=== PATIENT | male | born 1960 | race Two or more races ===

== ENCOUNTER 2020-11-29 08:32 | Outpatient (REF) | payer OTHER, SELFPAY ==
[2020-11-29 09:09] LABS: MANUAL DIFF FLAG NO
[2020-11-29 09:14] LABS: Basophils Absolute Auto 0.1 X10*3/uL (0.0-0.2); Basophils Percent Auto 0.7 % (0-2); Eosinophils Absolute Auto 0.2 X10*3/uL (0.0-0.4); Eosinophils Percent Auto 2.8 % (0-4); Hematocrit 43.3 % (42-52); Hemoglobin 14.7 g/dl (14.0-18.0); Imm Gran Abs Auto 0.03 X10*3/uL (0.00-0.03); Imm Gran Pct Auto 0.4 % (0.0-0.4); Lymphocytes Absolute Auto 2.7 X10*3/uL (1.2-4.9); Lymphocytes Percent Auto 38.7 % (20-40); Mean Corpuscular HGB Conc 33.9 g/dl (31.0-36.0); Mean Corpuscular Hemoglobin 29.8 pg (27.0-33.0); Mean Corpuscular Volume 87.8 fL (80-98); Mean Platelet Volume 9.3 fL (9.4-12.4); Monocytes Absolute Auto 0.5 X10*3/uL (0.1-1.2); Monocytes Percent Auto 6.8 % (2-11); Neutrophils Absolute Auto 3.5 X10*3/uL (2.0-8.3); Neutrophils Percent Auto 50.6 % (45-73); Platelet Count 263 X10*3/uL (160-400); Red Blood Count 4.93 X10*6/uL (4.60-5.80); Red Cell Distribution Width 13.1 % (11.0-16.0); White Blood Count 6.9 X10*3/uL (4.8-10.8)
[2020-11-29 09:44] LABS: Alanine Aminotransferase 32 U/L (0-40); Albumin Level 4.3 g/dL (3.5-5.0); Alkaline Phosphatase 63 U/L (39-117); Anion Gap 11 (12-20); Aspartate Amino Transferase 18 U/L (5-37); Bilirubin Total 0.7 mg/dL (0.0-1.0); Blood Urea Nitrogen 14 mg/dL (9-16); Calcium 8.9 mg/dL (8.4-10.2); Carbon Dioxide 26 mmol/L (22-29); Chloride 104 mmol/L (96-108); Cholesterol 162 mg/dL; Estimated Glomerular Filt Rate > 60; Glucose Fasting 134 mg/dL (60-99); HDL Cholesterol 41 mg/dL; LDL Cholesterol Calculated 89 mg/dl; Potassium 4.4 mmol/L (3.3-5.1); Sodium 137 mmol/L (135-145); Total Protein 7.3 g/dL (6.5-8.0); Triglycerides 162 mg/dL
== END 2020-11-29 08:33 | disposition home or self-care (01) ==
LOC: HO.LAB 08:32
PROVIDERS: Visit Provider Internal Medicine
DX: Z00.00 Encounter for general adult medical examination without abnormal findings (principal); E11.9 Type 2 diabetes mellitus without complications
CPT/HCPCS: 36415; 80053; 80061; 85025

== ENCOUNTER → 2021-01-15 09:17 | Outpatient (BNVA) | payer OTHER, SELFPAY | PROVIDERS: PCP Internal Medicine; Visit Provider Internal Medicine | DX: R07.2 Precordial pain (principal); R06.02 Shortness of breath; I10 Essential (primary) hypertension; E78.5 Hyperlipidemia, unspecified | CPT/HCPCS: 93005 ==

== ENCOUNTER → 2021-01-21 10:33 | Outpatient (REF) | payer OTHER, SELFPAY ==
--- NOTE | 2021-01-21 10:37 | CA_ITS ---
Acquisition Time: 2021-01-21 10:52:46 Total Exercise Time: 00:09:41 Test Indications: SOB Medications: SEE CHART Protocol: LIN Max HR: 169 BPM 104% of Pred: 162 BPM Max BP: 152/080 mmHG Max Work Load: 11.2 METS Exercise stress ECHO using Lin protocol. Total of 9 min 41 sec, METS 11.20 and TAPHR up to 104 %. Pt tolerated well, denies any anginal sx. EKG without arrhythmias, no ischemic changes seen during exercise or in recovery. EHO images taken at rest and immediately after peak exercise HR achieved. Definity contrast used. Normotensive response to exercise. Test reviewed with Dr. Lombardo. Referred By: Martin Lombardo Overread By: Zulay Benitez NP
== END ==
LOC: HO.CARD 10:33
PROVIDERS: Visit Provider Internal Medicine
DX: R07.2 Precordial pain (principal)
CPT/HCPCS: 93350; Q9957

== ENCOUNTER → 2021-02-26 09:18 | Outpatient (REF) | payer OTHER, SELFPAY ==
--- NOTE | 2021-02-26 09:22 | CA_ITS ---
Transthoracic Echocardiogram Patient (Last, First, Middle): Dave Vail, Gender: Male Date of : 1960 Age: 60 Procedure Date: 02/26/2021 Procedure Type: Transthoracic Echocardiogram Location: OP Height: 162.56 cm Weight: 76.2 kg BSA: 1.82 m2 Heart Rate: bpm BP: 134 / 72 mmHg Machine Design Teacher: CLARISSA Vidales MD: Martin Lombardo MD Auto Body Straightener: Mateo Gonzalez MD Symptoms: R07.2 - Precordial pain Study Quality: Good ECG Rhythm: Sinus Conclusions: - 1. Normal LV systolic function with grade 1 diastolic dysfunction 2. Mildly decreased RV size low RV systolic right 3. Normal cardiac valvular Doppler 4. No pericardial effusion Findings Left Ventricle Normal left ventricular size, thickness, and systolic function. The visually estimated ejection fraction is between 60-65%. Spectral Doppler is indicative of an impaired relaxation filling pattern. E/E prime ratio is <8, consistent with normal filling pressures. Evidence suggests grade I (mild) diastolic dysfunction. Right Ventricle Mildly increased right ventricular cavity size. There is low normal right ventricular systolic function. Atria Both atria are normal in size. There is no evidence of interatrial shunt. Aortic Valve Normal aortic valve structure and function. There is no aortic valve stenosis. There is no aortic valve regurgitation. Mitral Valve There is mild posterior mitral leaflet thickening. There is mild mitral annular calcification. There is trace mitral valve regurgitation. There is no mitral valve stenosis. Pulmonic Valve The pulmonic valve is likely normal. Tricuspid Valve Likely normal tricuspid valve structure and function. Tricuspid regurgitation envelope is inadequate for calculation of right ventricular systolic pressure. Great Vessels All visible segments of the aorta are normal in size. The pulmonary artery was not well visualized. Venous The inferior vena cava is normal in size and collapses greater than 50% with inspiration. Pericardium/Pleural There is no evidence of pericardial effusion. Prior Study Comparison No previous study within last 5 years for comparison Measurements 2D Linear Measurements RVIDd: 2.91 RVIDd Index: 1.60 IVSd: 1.04 0.6-0.9/0.6-1.0 cm LVIDd: 5.23 3.9-5.3/4.2-5.9 cm LVIDd Index: 2.87 2.4-3.2/2.2-3.1 cm/m2 LVIDs: 3.20 2.0-3.6 cm LVPWd: 0.95 0.7-1.1 cm Ao Root: 3.10 2.1-3.5 cm LA Diam: 3.30 2.7-3.8/3.0-4.0 cm LAIDs Index: 1.81 1.5-2.3 cm/m2 LV Mass: 243.29 67-162/88-224 g LV Mass Index: 133.68 43-95/49-115 g/m2 LVOT Diam: 2.20 3.0+(-)1.3 cm 2D Systolic Function EF 4C: 66.30 >55% EF 2C: 47.50 >55% EF BiP: 56.40 >55% Mitral Valve MV Pk E: 0.50 MV PK A: 0.48 MV Decel Time: 235.00 E/A: 1.00 E'Lateral: 10.40 E'Medial: 5.98 E/E' Med: 8.40 E/E' Lat: 4.80 Aortic Valve AoV Pk Andrea: 1.33 AoV Mn Andrea: 0.94 AoV VTI: 0.26 AoV Pk Grad: 7.00 Aov Mn Grad: 4.00 EDNA Cont.VTI: 2.77 LVOT LVOT Pk Andrea: 0.93 LVOT Mn Andrea: 0.62 LVOT VTI: 0.19 LVOT Pk Grad: 3.00 LVOT Mn Grad: 2.00 LVOT Diam: 2.20 LVOT Area: 3.80 Diastolic Function MV Pk E: 0.50 MV Pk A: 0.48 E/A: 1.00 E'Medial: 5.98 E/E' Med: 8.40 E' Laterial: 10.40 E/E' Lat: 4.80 Tricuspid Valve RA Press: 3.00 Great Vessels Aorta Ao Root-2D: 3.10 2.0-3.7 cm Ao Asc: 3.00 2.1-3.4 cm Ao Arch: 2.60 Updated in Other Vendor System with Status of Final Mateo Gonzalez MD electronically signed on 02/28/2021 12:22:45 PM with status of Final
== END ==
LOC: HO.CARD 09:18
PROVIDERS: Visit Provider Internal Medicine
DX: R07.2 Precordial pain (principal)
CPT/HCPCS: 93306

== ENCOUNTER → 2021-03-11 09:09 | Outpatient (BNVA) | payer OTHER, SELFPAY | PROVIDERS: PCP Internal Medicine; Referring Provider Internal Medicine; Visit Provider Internal Medicine ==

== ENCOUNTER → 2021-09-15 08:44 | Outpatient (BNVA) | payer OTHER, SELFPAY | PROVIDERS: PCP Internal Medicine; Referring Provider Internal Medicine; Visit Provider Internal Medicine ==

== ENCOUNTER 2021-12-08 12:45 | Emergency (ER) | payer OTHER, SELFPAY ==
--- NOTE | ~2021-12-08 | XR_ITS ---
EXAMINATION: XR CHEST CLINICAL INFORMATION: Chest pain COMPARISON: None TECHNIQUE: Frontal view of the chest was obtained. FINDINGS: The lungs are well-expanded. There is no focal consolidation, edema or effusion. No pneumothorax. The cardiomediastinal silhouette is within normal limits. No acute osseous abnormality. XR/XR chest 1V IMPRESSION: No acute pulmonary disease.
[2021-12-08 13:47] VITALS: BP 173/99; PULSE 74; RESP 18; TEMP 36.8; O2SAT 97; BMI 28.1
--- NOTE | 2021-12-08 13:49 | ECG_ITS ---
Test Reason : HTN Blood Pressure : / mmHG Vent. Rate : 066 BPM Atrial Rate : 066 BPM P-R Int : 190 ms QRS Dur : 096 ms QT Int : 376 ms P-R-T Axes : 049 005 037 degrees QTc Int : 394 ms Normal sinus rhythm Inferior infarct , age undetermined Abnormal ECG No previous ECGs available Referred By: Generic ED Physician Electronically Signed By:Nic Johnson
[2021-12-08 14:03] LABS: MANUAL DIFF FLAG NO
[2021-12-08 14:08] LABS: Basophils Percent Auto 0.7 % (0-2); Eosinophils Absolute Auto 0.2 X10*3/uL (0.0-0.4); Hematocrit 43.1 % (42.0-52.0); Hemoglobin 14.9 g/dl (14.0-18.0); Imm Gran Abs Auto 0.03 X10*3/uL (0.00-0.03); Imm Gran Pct Auto 0.5 % (0.0-0.4); Lymphocytes Absolute Auto 2.3 X10*3/uL (1.2-4.9); Mean Corpuscular HGB Conc 34.6 g/dl (31.0-36.0); Mean Corpuscular Hemoglobin 29.7 pg (27.0-33.0); Mean Corpuscular Volume 85.9 fL (80.0-98.0); Mean Platelet Volume 9.1 fL (9.4-12.4); Monocytes Absolute Auto 0.3 X10*3/uL (0.1-1.2); Monocytes Percent Auto 5.6 % (2-11); Neutrophils Absolute Auto 3.2 x10*3/uL (2.0-8.3); Neutrophils Percent Auto 53.2 % (45-73); Platelet Count 254 X10*3/uL (160-400); Red Blood Count 5.02 X10*6/uL (4.60-5.80); Red Cell Distribution Width 12.9 % (11.0-16.0); White Blood Count 6.1 X10*3/uL (4.8-10.8)
[2021-12-08 14:21] LABS: Anion Gap 12 (12-20); Blood Urea Nitrogen 12 mg/dL (9-16); Calcium 10.1 mg/dL (8.4-10.2); Carbon Dioxide 26 mmol/L (22-29); Chloride 103 mmol/L (96-108); Estimated Glomerular Filt Rate > 60; Glucose Random 169 mg/dL (60-115); Potassium 4.2 mmol/L (3.3-5.1); Sodium 137 mmol/L (135-145)
[2021-12-08 14:26] LABS: Troponin-I High Sensitivity 4.6 ng/L (<3.5-35.0)
--- NOTE | 2021-12-08 14:26 | ED.CHESTPAIN ---
HPI - Chest Pain General Chief Complaint: Chest Pain Stated Complaint: HIGH BP 160 / 90 CHEST PAIN Time Seen by Provider: 12/08/21 14:26 Source: patient Mode of arrival: ambulatory Limitations: no limitations History of Present Illness HPI narrative: chest pain started at 8pm, the pain radiated into the back. Started last night, intermittent, but at times it is worse. Stress echo normal 4 months ago complaint: chest pain and chest heaviness Onset (ago): hour(s) Timing of current episode: episodic Prior episodes: No Onset: during rest Pain location: substernal Pain radiation: back Severity: moderate Quality: other (pressure) Exacerbating factors: nothing Risk Factors Coronary artery disease risk factors: hyperlipidemia, hypertension and family history of CAD before age 50 Related Data Home Medications Medication Instructions Recorded Confirmed aspirin 81 mg tablet,delayed 81 mg PO DAILY 11/22/20 09/15/21 release (Adult Low Dose Aspirin) multivit,Ca,min-iron 8 mg-folic 1 tab PO DAILY tab 11/22/20 09/15/21 acid 200 mcg-lycopene 600 mcg tablet (Centrum Men) simvastatin 40 mg tablet 40 mg PO DAILY 11/22/20 09/15/21 Previous Rx's Medication Instructions Recorded lisinopril 5 mg tablet 5 mg PO DAILY #90 tab 02/17/21 Allergies Allergy/AdvReac Type Severity Reaction Status Date / Time No Known Allergies Allergy Verified 09/15/21 09:02 Review of Systems Constitutional: Constitutional: Reports no additional constitutional complaints Eyes: Eyes: Reports no additional eye complaints ENT: Denies dizziness Cardiovascular: Cardiovascular: Reports no additional cardiovascular complaints Respiratory: Respiratory: Reports as per HPI Gastrointestinal: Gastrointestinal: Reports no additional gastrointestinal complaints Musculoskeletal: Musculoskeletal: Reports no additional musculoskeletal complaints Integumentary/Breasts: Skin/Breast: Denies rash Neurologic: Reports system reviewed and no additional complaints, except as documented, Denies dizziness and Denies Sensory deficit (Neuro) Psychiatric: Psychiatric: Denies anxiety PMFSH Past Medical History Medical History Essential hypertension Hypertension Other and unspecified hyperlipidemia Surgical History History of extraction of renal calculus Family History Family History Mother No problems noted. Father High blood pressure Social History Social History Alcohol intake: current Alcohol intake frequency: a few times a month Patient Tobacco Use Status: Never used Tobacco Use of substances other than those prescribed or required for medical reasons: No Advance Directives: No Advance Directives Information Provided: No Physical Exam Vital Signs: Vital Signs: Last Vital Signs Temp 98.2 F 12/08/21 13:47 Pulse 70 12/08/21 14:39 Resp 22 H 12/08/21 14:39 BP 177/98 H 12/08/21 14:39 Pulse Ox 97 12/08/21 13:47 BMI result Body Mass Index 28.1 Const: General: healthy appearing Nutritional Appearance: average body habitus Orientation/consciousness: oriented to person and patient oriented x3 Limitations: no limitations HENMT: Head: Yes normal to inspection Ears: external ears normal General nose exam: Normal external nose present Mouth: Normal oral and palatal mucosa present and oropharynx normal Throat: Yes posterior oropharynx normal Eyes: General: appearance normal, both eyes and all related structures Neck: Other: supple Neck: Yes normal visual inspection Chest: Chest palpation & inspection: normal inspection of the chest Resp: Auscultation: clear to auscultation bilaterally Cardio: Jugular venous distension: no JVD Rate: regular rate Rhythm: regular rhythm Heart sounds: S1 normal heart sound present and S2 normal heart sound present GI: Inspection: Yes normal to inspection Palpation (GI): Soft to palpation, nontender and No hepatosplenomegaly present Auscultation: normal bowel sounds : General: Yes no CVA tenderness Back/Spine/Pelvis: Back: no CVA tenderness Skin: General skin exam: no rashes or lesions noted Neuro: General: oriented to person and patient oriented x3 Cranial nerves: Yes CN's II-XII intact bilaterally Motor exam (neuro): 5/5 motor strength present throughout Sensory Exam: No Sensory deficit (Neuro) Extrem: General: Yes normal to inspection Psych: Appearance: grossly normal Course Reevaluation(s) Reevaluation #1: patient with continued pain since last night with normal EKG and flat troponins. In the setting of negative stress echo a few months ago and discussed with Dr. Alex will dc home Time: 18:16 MDM - Chest Pain Lab Data Result diagrams: 12/08/21 13:59 12/08/21 13:59 Labs: Lab Results 12/08/21 12/08/21 12/08/21 Range/Units 13:59 13:59 13:59 WBC 6.1 (4.8-10.8) X10*3/uL RBC 5.02 (4.60-5.80) X10*6/uL Hgb 14.9 (14.0-18.0) g/dl Hct 43.1 (42.0-52.0) % MCV 85.9 (80.0-98.0) fL MCH 29.7 (27.0-33.0) pg MCHC 34.6 (31.0-36.0) g/dl RDW 12.9 (11.0-16.0) % Plt Count 254 (160-400) X10*3/uL MPV 9.1 L (9.4-12.4) fL Immature Gran % (Auto) 0.5 H (0.0-0.4) % Neut % (Auto) 53.2 (45-73) % Lymph % (Auto) 37.0 (20-40) % [place] % (Auto) 5.6 (2-11) % Eos % (Auto) 3.0 (0-4) % Baso % (Auto) 0.7 (0-2) % Lymph # (Auto) 2.3 (1.2-4.9) X10*3/uL [place] # (Auto) 0.3 (0.1-1.2) X10*3/uL Eos # (Auto) 0.2 (0.0-0.4) X10*3/uL Baso # (Auto) 0.0 (0.0-0.2) X10*3/uL Abs Immat Gran (auto) 0.03 (0.00-0.03) X10*3/uL Absolute Neuts (auto) 3.2 (2.0-8.3) x10*3/uL Absolute Nucleated RBC 0.000 (0.0-0.012) X10*3/uL Nucleated RBC % (auto) 0.0 (0.0-0.2) /100WBC Sodium 137 (135-145) mmol/L Potassium 4.2 (3.3-5.1) mmol/L Chloride 103 (96-108) mmol/L Carbon Dioxide 26 (22-29) mmol/L Anion Gap 12 (12-20) BUN 12 (9-16) mg/dL Creatinine 1.07 (0.5-1.4) mg/dL Estim Creat Clear Calc 71.0 Estimated GFR > 60 Random Glucose 169 H (60-115) mg/dL Calcium 10.1 D (8.4-10.2) mg/dL Troponin I High Sens 4.6 (<3.5-35.0) ng/L COVID-19 (FILIBERTO) (Negative) COVID-19 Clin Com 12/08/21 12/08/21 Range/Units 13:59 16:27 WBC (4.8-10.8) X10*3/uL RBC (4.60-5.80) X10*6/uL Hgb (14.0-18.0) g/dl Hct (42.0-52.0) % MCV (80.0-98.0) fL MCH (27.0-33.0) pg MCHC (31.0-36.0) g/dl RDW (11.0-16.0) % Plt Count (160-400) X10*3/uL MPV (9.4-12.4) fL Immature Gran % (Auto) (0.0-0.4) % Neut % (Auto) (45-73) % Lymph % (Auto) (20-40) % [place] % (Auto) (2-11) % Eos % (Auto) (0-4) % Baso % (Auto) (0-2) % Lymph # (Auto) (1.2-4.9) X10*3/uL [place] # (Auto) (0.1-1.2) X10*3/uL Eos # (Auto) (0.0-0.4) X10*3/uL Baso # (Auto) (0.0-0.2) X10*3/uL Abs Immat Gran (auto) (0.00-0.03) X10*3/uL Absolute Neuts (auto) (2.0-8.3) x10*3/uL Absolute Nucleated RBC (0.0-0.012) X10*3/uL Nucleated RBC % (auto) (0.0-0.2) /100WBC Sodium (135-145) mmol/L Potassium (3.3-5.1) mmol/L Chloride (96-108) mmol/L Carbon Dioxide (22-29) mmol/L Anion Gap (12-20) BUN (9-16) mg/dL Creatinine (0.5-1.4) mg/dL Estim Creat Clear Calc Estimated GFR Random Glucose (60-115) mg/dL Calcium (8.4-10.2) mg/dL Troponin I High Sens 4.5 (<3.5-35.0) ng/L COVID-19 (FILIBERTO) Negative (Negative) COVID-19 Clin Com See Note Discharge Plan Discharge Clinical Impression: Chest pain Patient Disposition: Home, Self-Care Instructions: Chest Pain (ED) Prescriptions: No Action lisinopril 5 mg tablet 5 mg PO DAILY Qty: 90 8RF simvastatin 40 mg tablet 40 mg PO DAILY 0RF aspirin [Adult Low Dose Aspirin] 81 mg tablet,delayed release (DR/EC) 81 mg PO DAILY 0RF Centrum Men 8 mg iron- 200 mcg-600 mcg tablet 1 tab PO DAILY 0RF Referrals: Martin Lombardo MD [Physician] - 5 days
[2021-12-08 14:35] LABS: COVID-19 Test Negative (Negative)
[2021-12-08 14:39] VITALS: BP 177/98; PULSE 70; RESP 22
[2021-12-08] MEDS: lisinopriL 10 MG TABLET PO (14:46)
[2021-12-08] MEDS: Ketorolac Tromethamine 60 MG/2 ML VIAL IM (14:46)
[2021-12-08 17:09] LABS: Troponin-I High Sensitivity 4.5 ng/L (<3.5-35.0)
== END 2021-12-08 18:33 | disposition home or self-care (01) ==
PROVIDERS: Emergency Provider Emergency Medicine; PCP Internal Medicine
DX: R07.9 Chest pain, unspecified (principal); Z20.822 Contact with and (suspected) exposure to COVID-19; E78.5 Hyperlipidemia, unspecified; I10 Essential (primary) hypertension; Z79.82 Long term (current) use of aspirin; Z79.02 Long term (current) use of antithrombotics/antiplatelets
CPT/HCPCS: 36415; 71045; 80048; 84484; 85025; 87635; 93005; 96372; 99284; 99285; J1885

== ENCOUNTER 2022-04-07 07:35 | Outpatient (REF) | payer OTHER, SELFPAY ==
[2022-04-07 07:50] LABS: MANUAL DIFF FLAG NO
[2022-04-07 08:18] LABS: Basophils Absolute Auto 0.1 X10*3/uL (0.0-0.2); Basophils Percent Auto 1.1 % (0-2); Eosinophils Absolute Auto 0.2 X10*3/uL (0.0-0.4); Eosinophils Percent Auto 3.3 % (0-4); Hematocrit 40.9 % (42.0-52.0); Imm Gran Abs Auto 0.03 X10*3/uL (0.00-0.03); Imm Gran Pct Auto 0.5 % (0.0-0.4); Lymphocytes Absolute Auto 2.6 X10*3/uL (1.2-4.9); Lymphocytes Percent Auto 41.7 % (20-40); Mean Corpuscular HGB Conc 34.2 g/dl (31.0-36.0); Mean Corpuscular Hemoglobin 29.6 pg (27.0-33.0); Mean Corpuscular Volume 86.5 fL (80.0-98.0); Mean Platelet Volume 9.2 fL (9.4-12.4); Monocytes Absolute Auto 0.5 X10*3/uL (0.1-1.2); Monocytes Percent Auto 7.5 % (2-11); Neutrophils Absolute Auto 2.9 x10*3/uL (2.0-8.3); Neutrophils Percent Auto 45.9 % (45-73); Platelet Count 259 X10*3/uL (160-400); Red Blood Count 4.73 X10*6/uL (4.60-5.80); Red Cell Distribution Width 13.2 % (11.0-16.0); White Blood Count 6.3 X10*3/uL (4.8-10.8)
[2022-04-07 08:36] LABS: Estimated Average Glucose 137 mg/dL; Hemoglobin A1c % 6.4 %
[2022-04-07 08:59] LABS: Alanine Aminotransferase 28 U/L (0-40); Alkaline Phosphatase 68 U/L (39-117); Anion Gap 12 (12-20); Aspartate Amino Transferase 17 U/L (5-37); Bilirubin Total 0.4 mg/dL (0.0-1.0); Blood Urea Nitrogen 18 mg/dL (9-16); Calcium 8.7 mg/dL (8.4-10.2); Carbon Dioxide 24 mmol/L (22-29); Chloride 106 mmol/L (96-108); Cholesterol 189 mg/dL; Estimated Glomerular Filt Rate > 60; Glucose Fasting 142 mg/dL (60-99); HDL Cholesterol 35 mg/dL; LDL Cholesterol Calculated 84 mg/dl; Potassium 4.2 mmol/L (3.3-5.1); Sodium 138 mmol/L (135-145); Total Protein 7.1 g/dL (6.5-8.0); Triglycerides 353 mg/dL
== END 2022-04-07 07:36 | disposition home or self-care (01) ==
LOC: HO.LAB 07:35
PROVIDERS: PCP Internal Medicine; Visit Provider Internal Medicine
DX: Z00.00 Encounter for general adult medical examination without abnormal findings (principal); E11.9 Type 2 diabetes mellitus without complications; Z13.0 Encounter for screening for diseases of the blood and blood-forming organs and certain disorders involving the immune mechanism; Z13.220 Encounter for screening for lipoid disorders
CPT/HCPCS: 36415; 80053; 80061; 83036; 85025

== ENCOUNTER → 2022-07-21 10:15 | Outpatient (REF) | payer OTHER, SELFPAY ==
--- NOTE | 2022-07-21 10:18 | CA_ITS ---
Transthoracic Echocardiogram Patient (Last, First, Middle): Dave Vail, Gender: Male Date of : 1960 Age: 61 Procedure Date: 07/21/2022 Procedure Type: Transthoracic Echocardiogram Location: OP Height: 167.64 cm Weight: 76.66 kg BSA: 1.86 m2 Heart Rate: 60 bpm BP: 130 / 80 mmHg Fiberglass Machine Operator: ARABELLA Referring MD: Martin Lombardo MD Symptoms: I51.7 - Cardiomegaly Study Quality: Adequate ECG Rhythm: Sinus Conclusions: - The left ventricular systolic function is normal. The calculated ejection fraction is 57% by biplane method. - No obvious valvular pathology seen on this study. Findings Left Ventricle Normal left ventricular cavity size. The left ventricular systolic function is normal. The calculated ejection fraction is 57% by biplane method. There is no evidence of regional wall motion abnormalities. Diastolic function is normal for age. There is mild septal asymmetric hypertrophy. Right Ventricle Normal right ventricular cavity size and systolic function. Atria Both atria are normal in size. Aortic Valve There is a normal trileaflet aortic valve. There is no aortic valve stenosis. There is no aortic valve regurgitation. Mitral Valve The mitral valve appears normal. There is trace mitral valve regurgitation. There is no mitral valve stenosis. Pulmonic Valve There is trace pulmonic valve regurgitation. Tricuspid Valve Normal tricuspid valve structure. There is trace tricuspid valve regurgitation. There is no evidence of pulmonary hypertension. Great Vessels The asc aorta is normal in size. Venous The inferior vena cava is normal in size and collapses greater than 50% with inspiration. Pericardium/Pleural There is no evidence of pericardial effusion. Prior Study Comparison Changes noted compared to prior study dated: 02/26/2021. RV function appears normal. Recommendations, Care & Conclusions No obvious valvular pathology seen on this study. Measurements 2D Linear Measurements IVSd: 1.15 0.6-0.9/0.6-1.0 cm LVIDd: 5.04 3.9-5.3/4.2-5.9 cm LVIDd Index: 2.71 2.4-3.2/2.2-3.1 cm/m2 LVIDs: 3.07 2.0-3.6 cm LVPWd: 0.83 0.7-1.1 cm LA Diam: 3.90 2.7-3.8/3.0-4.0 cm LAIDs Index: 2.10 1.5-2.3 cm/m2 LV Mass: 227.26 67-162/88-224 g LV Mass Index: 122.18 43-95/49-115 g/m2 LVOT Diam: 1.90 3.0+(-)1.3 cm 2D Systolic Function EF 4C: 54.00 >55% EF 2C: 57.70 >55% EF BiP: 56.70 >55% Mitral Valve MV Pk E: 0.77 MV PK A: 0.67 MV Decel Time: 230.00 E/A: 1.10 E'Lateral: 12.40 E'Medial: 7.72 E/E' Med: 9.90 E/E' Lat: 6.20 PHT: 67.00 MVA PHT: 3.28 Decel [place]: 3.34 Aortic Valve AoV Pk Andrea: 1.27 AoV Mn Andrea: 0.99 AoV VTI: 0.30 AoV Pk Grad: 6.00 Aov Mn Grad: 4.00 EDNA Cont.VTI: 1.74 LVOT LVOT Pk Andrea: 0.81 LVOT Mn Andrea: 0.58 LVOT VTI: 0.18 LVOT Pk Grad: 3.00 LVOT Mn Grad: 2.00 LVOT Diam: 1.90 LVOT Area: 2.84 Diastolic Function MV Pk E: 0.77 MV Pk A: 0.67 E/A: 1.10 E'Medial: 7.72 E/E' Med: 9.90 E' Laterial: 12.40 E/E' Lat: 6.20 Right Ventricle TAPSE (mm): 20.70 TVS' Andrea: 9.46 Tricuspid Valve TR Pk Andrea: 1.65 TR Pk Grad: 11.00 RA Press: 3.00 RVSP: 14.00 Great Vessels Aorta Sinus of Valsalva: 3.50 2.0-3.5 cm Ao Asc: 3.20 2.1-3.4 cm Pulmonary Valve PV Pk Andrea: 1.26 Peak PV Grad: 6.00 Updated in Other Vendor System with Status of Final Martin Lombardo MD electronically signed on 07/22/2022 10:07:32 AM with status of Final
== END ==
LOC: HO.CARD 10:15
PROVIDERS: Visit Provider Internal Medicine
DX: I51.7 Cardiomegaly (principal)
CPT/HCPCS: 93306

== ENCOUNTER → 2022-09-29 10:21 | Outpatient (BNVA) | payer OTHER, SELFPAY | PROVIDERS: PCP Internal Medicine; Referring Provider Internal Medicine; Visit Provider Internal Medicine | DX: R07.2 Precordial pain (principal); I10 Essential (primary) hypertension; E78.5 Hyperlipidemia, unspecified | CPT/HCPCS: 93005 ==

== ENCOUNTER 2022-12-07 07:59 | Outpatient (REF) | payer OTHER, SELFPAY ==
[2022-12-07 09:14] LABS: Anion Gap 14 (12-20); Blood Urea Nitrogen 13 mg/dL (9-16); Calcium 9.1 mg/dL (8.4-10.2); Carbon Dioxide 26 mmol/L (22-29); Chloride 107 mmol/L (96-108); Estimated Glomerular Filt Rate > 60; Glucose Random 143 mg/dL (60-115); Potassium 4.5 mmol/L (3.3-5.1); Sodium 142 mmol/L (135-145)
== END 2022-12-07 08:00 | disposition home or self-care (01) ==
LOC: HO.LAB 07:59
PROVIDERS: PCP Internal Medicine; Visit Provider Internal Medicine
DX: R07.2 Precordial pain (principal)
CPT/HCPCS: 36415; 80048

== ENCOUNTER → 2023-01-11 10:19 | Outpatient (BNVA) | payer OTHER, SELFPAY | PROVIDERS: PCP Internal Medicine; Referring Provider Internal Medicine; Visit Provider Internal Medicine | DX: Z13.89 Encounter for screening for other disorder (principal) ==

== ENCOUNTER 2023-02-04 08:37 | Emergency (ER) | payer OTHER, SELFPAY ==
--- NOTE | ~2023-02-04 | XR_ITS ---
EXAMINATION: XR CHEST CLINICAL INFORMATION: Chest pain COMPARISON: December 08, 2021 TECHNIQUE: AP portable view of the chest was obtained. FINDINGS: No significant abnormality is noted involving the heart, lungs, mediastinum, bony thorax or soft tissues. XR/XR chest 1V IMPRESSION: No acute disease.
--- NOTE | 2023-02-04 07:00 | CA_ITS ---
Transthoracic Echocardiogram Amended Patient (Last, First, Middle): Dave Vail, Gender: Male Date of : 1960 Age: 62 Procedure Date: 02/04/2023 Procedure Type: Transthoracic Echocardiogram Location: ER Height: 162.56 cm Weight: 73.03 kg BSA: 1.78 m2 Heart Rate: 55 bpm BP: 135 / 76 mmHg Technical Service Rep: SB Referring MD: Nic Johnson MD Symptoms: RWMA Study Quality: Adequate w contrast ECG Rhythm: Bradycardia Conclusions: - Normal left ventricular size, thickness, and systolic function. The visually estimated ejection fraction is between 55-60%. - The apical inferior segment is akinetic. Findings Procedure Information Contrast agent, definity, is being given per protocol without apparent complications. Left Ventricle Normal left ventricular size, thickness, and systolic function. The visually estimated ejection fraction is between 55-60%. There is evidence of regional wall motion abnormalities. Wall Motion Rest Echo Findings The apical inferior segment is akinetic. Right Ventricle Normal right ventricular cavity size and systolic function. Prior Study Comparison Changes noted compared to prior study dated: 07/21/2022. Apical inferior wall is akinetic. Measurements 2D Linear Measurements IVSd: 0.94 0.6-0.9/0.6-1.0 cm LVIDd: 5.32 3.9-5.3/4.2-5.9 cm LVIDd Index: 2.99 2.4-3.2/2.2-3.1 cm/m2 LVIDs: 3.56 2.0-3.6 cm LVPWd: 0.77 0.7-1.1 cm LV Mass: 204.58 67-162/88-224 g LV Mass Index: 114.93 43-95/49-115 g/m2 LVOT Diam: 2.10 3.0+(-)1.3 cm 2D Systolic Function EF 4C: 57.50 >55% EF 2C: 64.10 >55% EF BiP: 60.00 >55% LVOT LVOT Pk Andrea: 0.88 LVOT Mn Andrea: 0.63 LVOT VTI: 0.21 LVOT Pk Grad: 3.00 LVOT Mn Grad: 2.00 LVOT Diam: 2.10 LVOT Area: 3.46 Updated in Other Vendor System with Status of Final Nic Johnson MD electronically signed on 02/04/2023 1:57:27 PM with status of Final
--- NOTE | 2023-02-04 08:38 | ECG_ITS ---
Test Reason : cp Blood Pressure : / mmHG Vent. Rate : 057 BPM Atrial Rate : 057 BPM P-R Int : 206 ms QRS Dur : 090 ms QT Int : 388 ms P-R-T Axes : 019 008 003 degrees QTc Int : 377 ms Sinus bradycardia Inferior infarct (cited on or before 08-DEC-2021) Abnormal ECG When compared with ECG of 08-DEC-2021 13:46, T wave inversion now evident in Inferior leads Referred By: Generic ED Physician Electronically Signed By:Nic Johnson
--- NOTE | 2023-02-04 08:52 | ED_ITS ---
HPI - Chest Pain General Chief Complaint: Chest Pain Stated Complaint: chest pain Time Seen by Provider: 02/04/23 08:49 Source: patient Mode of arrival: ambulatory Limitations: no limitations History of Present Illness HPI narrative: 62 yo male with history of multivessel CAD seen on recent coronary CTA, HTN, HLD, kidney stones, nonsmoker who presents to the ER for evaluation of chest pain that started slightly last night but got acutely worse at 5am when he woke up. He states he woke up with chest heaviness in the middle of his chest. He initially had some pain and pins/needles sensation in the left arm but states it could have been from the way he was sleeping with his LUE up behind his head. He got up and took 1 SL nitro for 8/10 pain. He states the pain improved to about a 6/10. He has no associated SOB or nausea. He also had similar chest heaviness type pain last night as well as a couple of days ago while at rest, similar to his previous CP episodes. He power walks on a treadmill, last 2 days ago and had no pain. MD complaint: chest pain Pertinent past history: coronary artery disease Onset (ago): hour(s) (4-5) Timing of current episode: constant Prior episodes: Yes Onset: during rest Pain location: substernal Pain radiation: left arm Severity: severe Pain scale (0-10): 8 Quality: heaviness Relieving factors: nitroglycerin Exacerbating factors: nothing Treatment prior to arrival: nitroglycerin Risk Factors Coronary artery disease risk factors: hyperlipidemia and hypertension Thoracic aortic dissection risk factors: none Related Data Home Medications Medication Instructions Recorded Confirmed aspirin 81 mg tablet,delayed 81 mg PO DAILY 11/22/20 01/11/23 release (Adult Low Dose Aspirin) multivit,Ca,min-iron 8 mg-folic 1 tab PO DAILY 11/22/20 01/11/23 acid 200 mcg-lycopene 600 mcg tablet (Centrum Men) lisinopril 10 mg tablet 10 mg PO DAILY 02/04/23 Previous Rx's Medication Instructions Recorded metoprolol tartrate 25 mg tablet 25 mg PO BID 30 days #60 tabs 12/23/22 rosuvastatin 40 mg tablet 40 mg PO DAILY #30 tabs 12/23/22 nitroglycerin 0.4 mg sublingual 0.4 mg sublingual Q5M PRN chest 01/11/23 tablet pain #30 tabs Allergies Allergy/AdvReac Type Severity Reaction Status Date / Time No Known Allergies Allergy Verified 01/11/23 10:24 Review of Systems Review of Systems: Yes all other systems are reviewed and are negative [facility] Past Medical History Medical History (Updated 02/04/23 @ 12:58 by Nic Johnson MD) Atherosclerotic cardiovascular disease Essential hypertension Hypertension Other and unspecified hyperlipidemia Surgical History History of extraction of renal calculus Family History Family History Mother No problems noted. Father High blood pressure Social History Social History Housing: Apartment Alcohol intake: current Alcohol intake frequency: holidays/special occasions only Patient Tobacco Use Status: Never used Tobacco Smoked in Last 30 Days: No e-Cigarette/Vaping Use: Never Used Second Hand Smoke Exposure: No Use of substances other than those prescribed or required for medical reasons: No Advance Directives: No service: No Current occupational status: employed Cognitive needs: No Hearing needs: No Vision needs: No Physical Exam Vital Signs: Vital Signs: Last Vital Signs Temp 98.1 F 02/04/23 08:54 Pulse 61 02/04/23 12:46 Resp 16 02/04/23 11:11 BP 135/76 02/04/23 11:11 Pulse Ox 95 02/04/23 11:11 O2 Del Method Room Air 02/04/23 11:11 BMI result Body Mass Index 27.8 Appearance: Alert. Oriented X3. No acute distress. Head: normocephalic, atraumatic. Eyes: Pupils equal, round and reactive to light. ENT: Pharynx normal. No tonsillar swelling or exudate. Neck: Normal inspection. Neck supple. CVS: Normal heart rate and rhythm. Pulses normal. Respiratory: No respiratory distress. Breath sounds normal. Abdomen: Soft and nontender. +BS x4 Skin: Skin warm and dry. Normal skin color. Normal skin turgor. No rashes. Extremities: No lower extremity edema. No joint swelling. Neuro/psych: Oriented X 3. No motor deficit. No sensory deficit. CN II-XII intact. Normal speech and cognition. Course Reevaluation(s) Reevaluation #1: 1st troponin is negative. he is feeling better after nitroglycerin cardiology to come evaluate. 2nd troponin pending Reevaluation #2: 2nd troponin negative. cardiology recommending transfer to [facility]. IV heparin infusion started along with nitro paste Consultations Consultation #1: Cardiology Dr. Johnson Medications Administered Discontinued Medications Generic Name Dose Route Start Last Admin Trade Name Freq PRN Reason Stop Dose Admin Nitroglycerin 0.4 mg 02/04/23 08:59 02/04/23 09:05 Nitroglycerin 0.4 Mg Tab.Subl SUBLINGUAL 02/04/23 09:00 0.4 mg ONCE ONE Administration Nitroglycerin 1 inch 02/04/23 12:33 02/04/23 12:46 Nitroglycerin 2 % Oint 1 Gm Packet TRANSDERMA 02/04/23 12:34 1 inch ONCE ONE Administration Medical Decision Making Medical Decision Making MDM Narrative: 62 yo male with history of multivessel CAD on medical management, HTN, HLD presenting with substernal chest pain since 5am. Few other episodes in the last few days at rest, none with exertion. 8/10 at maximum with improvement w/ SL nitro. repeated here with additional improvement. remains hemodynamically stable 1st troponin negative. cardiology consulted given his history - recommending transfer to [facility] for cardiac catheterization. will go directly inpatient - IV heparin to be started along with nitropaste Per Cardiology Note dated earlier this month: In the echocardiogram, LVEF 57%.? Otherwise unremarkable.? No wall motion abnormalities. In the exercise stress test, he was able to exercise for 9 minutes 41 seconds and reached 11.2 Mets.? No anginal-type symptoms or EKG evidence of ischemia.? Echocardiographic component was also unremarkable. Based on coronary CTA, he has got diffuse coronary disease.? Most prominent in the right coronary artery, where there is moderate to severe plaque burden.? More so towards the distal aspect, including PDA and posterolateral branch.? Lad had nonobstructive CAD.? LAD plaque had morphology suggestive of high risk plaque.? Left main is patent.? Circumflex is small.? As expected, FFR is positive in the distal RCA, posterior lateral ventricular branch. Differential Diagnosis Differential Diagnoses: The differential diagnosis associated with the presentation includes unstable angina, ACS, PE, chest wall pain, myocarditis, pericarditis Admission/Observation Consideration of admission/observation: Escalation of care including admission/observation considered Consult Healthcare Provider Management of the patient was discussed with: Specimen Preparation Assistant Dr. Johnson recommending IV Heparin, nitropaste and transfer to [facility] Lab Data MDM Lab Attestation statement: I reviewed the patient's lab results. 02/04/23 09:09 02/04/23 09:09 Labs: Lab Results 02/04/23 02/04/23 02/04/23 Range/Units 09:09 09:09 09:09 WBC 6.2 (4.8-10.8) X10*3/uL RBC 4.82 (4.60-5.80) X10*6/uL Hgb 14.2 (14.0-18.0) g/dl Hct 41.9 L (42.0-52.0) % MCV 86.9 (80.0-98.0) fL MCH 29.5 (27.0-33.0) pg MCHC 33.9 (31.0-36.0) g/dl RDW 13.3 (11.0-16.0) % Plt Count 240 (160-400) X10*3/uL MPV 9.3 L (9.4-12.4) fL Immature Gran % (Auto) 0.2 (0.0-0.4) % Neut % (Auto) 59.0 (45-73) % Lymph % (Auto) 31.5 (20-40) % [place] % (Auto) 5.3 (2-11) % Eos % (Auto) 2.9 (0-4) % Baso % (Auto) 1.1 (0-2) % Lymph # (Auto) 2.0 (1.2-4.9) X10*3/uL [place] # (Auto) 0.3 (0.1-1.2) X10*3/uL Eos # (Auto) 0.2 (0.0-0.4) X10*3/uL Baso # (Auto) 0.1 (0.0-0.2) X10*3/uL Abs Immat Gran (auto) 0.01 (0.00-0.03) X10*3/uL Absolute Neuts (auto) 3.7 (2.0-8.3) x10*3/uL Absolute Nucleated RBC 0.000 (0.0-0.012) X10*3/uL Nucleated RBC % (auto) 0.0 (0.0-0.2) /100WBC PT (10.0-13.1) SEC INR (0.9-1.1) APTT (26.0-36.4) SEC aPTT Heparin Protocol (53-77.9) SEC Sodium 139 (135-145) mmol/L Potassium 4.1 (3.3-5.1) mmol/L Chloride 110 H (96-108) mmol/L Carbon Dioxide 22 (22-29) mmol/L Anion Gap 11 L (12-20) BUN 15 (9-16) mg/dL Creatinine 0.86 (0.5-1.4) mg/dL Estim Creat Clear Calc 84.3 Estimated GFR > 60 Random Glucose 170 H (60-115) mg/dL Calcium 9.0 (8.4-10.2) mg/dL Magnesium 2.0 (1.6-2.6) mg/dL Total Bilirubin 0.4 (0.0-1.0) mg/dL Direct Bilirubin 0.1 (0.0-0.5) mg/dL AST 19 (5-37) U/L ALT 33 (0-40) U/L Alkaline Phosphatase 60 (39-117) U/L Troponin I High Sens 3.5 (<3.5-35.0) ng/L B-Natriuretic Peptide (<100) pg/mL Total Protein 6.7 (6.5-8.0) g/dL Albumin 4.1 (3.5-5.0) g/dL COVID-19 (FILIBERTO) (Negative) COVID-19 Clin Com 02/04/23 02/04/23 02/04/23 Range/Units 09:09 09:09 09:09 WBC (4.8-10.8) X10*3/uL RBC (4.60-5.80) X10*6/uL Hgb (14.0-18.0) g/dl Hct (42.0-52.0) % MCV (80.0-98.0) fL MCH (27.0-33.0) pg MCHC (31.0-36.0) g/dl RDW (11.0-16.0) % Plt Count (160-400) X10*3/uL MPV (9.4-12.4) fL Immature Gran % (Auto) (0.0-0.4) % Neut % (Auto) (45-73) % Lymph % (Auto) (20-40) % [place] % (Auto) (2-11) % Eos % (Auto) (0-4) % Baso % (Auto) (0-2) % Lymph # (Auto) (1.2-4.9) X10*3/uL [place] # (Auto) (0.1-1.2) X10*3/uL Eos # (Auto) (0.0-0.4) X10*3/uL Baso # (Auto) (0.0-0.2) X10*3/uL Abs Immat Gran (auto) (0.00-0.03) X10*3/uL Absolute Neuts (auto) (2.0-8.3) x10*3/uL Absolute Nucleated RBC (0.0-0.012) X10*3/uL Nucleated RBC % (auto) (0.0-0.2) /100WBC PT 11.4 (10.0-13.1) SEC INR 1.0 (0.9-1.1) APTT 34.2 Cancelled (26.0-36.4) SEC aPTT Heparin Protocol (53-77.9) SEC Sodium (135-145) mmol/L Potassium (3.3-5.1) mmol/L Chloride (96-108) mmol/L Carbon Dioxide (22-29) mmol/L Anion Gap (12-20) BUN (9-16) mg/dL Creatinine (0.5-1.4) mg/dL Estim Creat Clear Calc Estimated GFR Random Glucose (60-115) mg/dL Calcium (8.4-10.2) mg/dL Magnesium (1.6-2.6) mg/dL Total Bilirubin (0.0-1.0) mg/dL Direct Bilirubin (0.0-0.5) mg/dL AST (5-37) U/L ALT (0-40) U/L Alkaline Phosphatase (39-117) U/L Troponin I High Sens (<3.5-35.0) ng/L B-Natriuretic Peptide 13 (<100) pg/mL Total Protein (6.5-8.0) g/dL Albumin (3.5-5.0) g/dL COVID-19 (FILIBERTO) (Negative) COVID-19 Clin Com 02/04/23 02/04/23 02/04/23 Range/Units 12:10 12:42 13:06 WBC 8.2 (4.8-10.8) X10*3/uL RBC 5.34 (4.60-5.80) X10*6/uL Hgb 16.0 (14.0-18.0) g/dl Hct 47.4 (42.0-52.0) % MCV 88.8 (80.0-98.0) fL MCH 30.0 (27.0-33.0) pg MCHC 33.8 (31.0-36.0) g/dl RDW 13.5 (11.0-16.0) % Plt Count 239 (160-400) X10*3/uL MPV 9.3 L (9.4-12.4) fL Immature Gran % (Auto) (0.0-0.4) % Neut % (Auto) (45-73) % Lymph % (Auto) (20-40) % [place] % (Auto) (2-11) % Eos % (Auto) (0-4) % Baso % (Auto) (0-2) % Lymph # (Auto) (1.2-4.9) X10*3/uL [place] # (Auto) (0.1-1.2) X10*3/uL Eos # (Auto) (0.0-0.4) X10*3/uL Baso # (Auto) (0.0-0.2) X10*3/uL Abs Immat Gran (auto) (0.00-0.03) X10*3/uL Absolute Neuts (auto) (2.0-8.3) x10*3/uL Absolute Nucleated RBC 0.000 (0.0-0.012) X10*3/uL Nucleated RBC % (auto) 0.0 (0.0-0.2) /100WBC PT (10.0-13.1) SEC INR (0.9-1.1) APTT (26.0-36.4) SEC aPTT Heparin Protocol (53-77.9) SEC Sodium (135-145) mmol/L Potassium (3.3-5.1) mmol/L Chloride (96-108) mmol/L Carbon Dioxide (22-29) mmol/L Anion Gap (12-20) BUN (9-16) mg/dL Creatinine (0.5-1.4) mg/dL Estim Creat Clear Calc Estimated GFR Random Glucose (60-115) mg/dL Calcium (8.4-10.2) mg/dL Magnesium (1.6-2.6) mg/dL Total Bilirubin (0.0-1.0) mg/dL Direct Bilirubin (0.0-0.5) mg/dL AST (5-37) U/L ALT (0-40) U/L Alkaline Phosphatase (39-117) U/L Troponin I High Sens 4.1 (<3.5-35.0) ng/L B-Natriuretic Peptide (<100) pg/mL Total Protein (6.5-8.0) g/dL Albumin (3.5-5.0) g/dL COVID-19 (FILIBERTO) Negative (Negative) COVID-19 Clin Com See Note 02/04/23 Range/Units 13:06 WBC (4.8-10.8) X10*3/uL RBC (4.60-5.80) X10*6/uL Hgb (14.0-18.0) g/dl Hct (42.0-52.0) % MCV (80.0-98.0) fL MCH (27.0-33.0) pg MCHC (31.0-36.0) g/dl RDW (11.0-16.0) % Plt Count (160-400) X10*3/uL MPV (9.4-12.4) fL Immature Gran % (Auto) (0.0-0.4) % Neut % (Auto) (45-73) % Lymph % (Auto) (20-40) % [place] % (Auto) (2-11) % Eos % (Auto) (0-4) % Baso % (Auto) (0-2) % Lymph # (Auto) (1.2-4.9) X10*3/uL [place] # (Auto) (0.1-1.2) X10*3/uL Eos # (Auto) (0.0-0.4) X10*3/uL Baso # (Auto) (0.0-0.2) X10*3/uL Abs Immat Gran (auto) (0.00-0.03) X10*3/uL Absolute Neuts (auto) (2.0-8.3) x10*3/uL Absolute Nucleated RBC (0.0-0.012) X10*3/uL Nucleated RBC % (auto) (0.0-0.2) /100WBC PT 11.1 (10.0-13.1) SEC INR 1.0 (0.9-1.1) APTT (26.0-36.4) SEC aPTT Heparin Protocol 33.7 L (53-77.9) SEC Sodium (135-145) mmol/L Potassium (3.3-5.1) mmol/L Chloride (96-108) mmol/L Carbon Dioxide (22-29) mmol/L Anion Gap (12-20) BUN (9-16) mg/dL Creatinine (0.5-1.4) mg/dL Estim Creat Clear Calc Estimated GFR Random Glucose (60-115) mg/dL Calcium (8.4-10.2) mg/dL Magnesium (1.6-2.6) mg/dL Total Bilirubin (0.0-1.0) mg/dL Direct Bilirubin (0.0-0.5) mg/dL AST (5-37) U/L ALT (0-40) U/L Alkaline Phosphatase (39-117) U/L Troponin I High Sens (<3.5-35.0) ng/L B-Natriuretic Peptide (<100) pg/mL Total Protein (6.5-8.0) g/dL Albumin (3.5-5.0) g/dL COVID-19 (FILIBERTO) (Negative) COVID-19 Clin Com Independent Interpretation I performed an independent interpretation of an: EKG and Plain X-Ray Interpretation: EKG 8:42am with sinus bradycardia, HR 57 bpm, new T-wave inversions in leads III and aVF compared to Nov 2021. no ST segment elevations. EKG 13:35 - sinus bradycardia, HR 54 bpm, no ST segment elevations or depressions cxr with clear lungs Radiology Impression Discussion of test interpretation with radiology: I have reviewed the radi ologist's reading. Radiologist Impression: EXAMINATION: XR CHEST CLINICAL INFORMATION: Chest pain COMPARISON: December 08, 2021 TECHNIQUE: AP portable view of the chest was obtained. FINDINGS: No significant abnormality is noted involving the heart, lungs, mediastinum, bony thorax or soft tissues. XR/XR chest 1V IMPRESSION: No acute disease. External Record Review External record reviewed: Office record, Outpatient record, Prior outpatient labs and Prior outpatient radiology Prescription Management I considered prescription management with: Pain Medication and Other (heparin, nitroglycerin) Chronic Conditions Patient?s care impacted by: Hypertension and Other (CAD) Scores Heart Score History: -1- moderately suspicious ECG: -0- normal Age: -1- >45 - <65 Risk factory: -2- 3 or more risk factors or treated atherosclerosis Troponin: -0- < or = normal limit Score: 4 Risk: 16.6% Critical Care Time Critical Care Time Critical Care Time: Yes Total Critical Care Time: 39 Attestation: I have personally provided critical care time exclusive of time spent on separately billable procedures. Time includes review of lab data, radiology results, discussion with consultants, and monitoring for potential decompensation. Intervention performed as documented. Discharge Plan Discharge Clinical Impression: Chest pain Patient Disposition: [facility] Transfer Details: [facility] Prescriptions: No Action metoprolol tartrate 25 mg tablet 25 mg PO BID 30 Days Qty: 60 3RF rosuvastatin 40 mg tablet 40 mg PO DAILY Qty: 30 3RF lisinopril 10 mg tablet 10 mg PO DAILY aspirin [Adult Low Dose Aspirin] 81 mg tablet,delayed release (DR/EC) 81 mg PO DAILY Centrum Men 8 mg iron- 200 mcg-600 mcg tablet 1 tab PO DAILY nitroglycerin 0.4 mg tablet, sublingual 0.4 mg sublingual Q5M PRN (Reason: chest pain) Qty: 30 5RF Rx Instructions: do not exceed 3 doses per episode
[2023-02-04 08:54] VITALS: BP 159/83; PULSE 59; RESP 13; TEMP 36.7; O2SAT 94; BMI 28.1
[2023-02-04] MEDS: Nitroglycerin 0.4 MG TAB.SUBL SUBLINGUAL (09:05)
[2023-02-04 09:20] LABS: MANUAL DIFF FLAG NO
[2023-02-04 09:23] LABS: Basophils Absolute Auto 0.1 X10*3/uL (0.0-0.2); Basophils Percent Auto 1.1 % (0-2); Eosinophils Absolute Auto 0.2 X10*3/uL (0.0-0.4); Eosinophils Percent Auto 2.9 % (0-4); Hematocrit 41.9 % (42.0-52.0); Hemoglobin 14.2 g/dl (14.0-18.0); Imm Gran Abs Auto 0.01 X10*3/uL (0.00-0.03); Imm Gran Pct Auto 0.2 % (0.0-0.4); Lymphocytes Percent Auto 31.5 % (20-40); Mean Corpuscular HGB Conc 33.9 g/dl (31.0-36.0); Mean Corpuscular Hemoglobin 29.5 pg (27.0-33.0); Mean Corpuscular Volume 86.9 fL (80.0-98.0); Mean Platelet Volume 9.3 fL (9.4-12.4); Monocytes Absolute Auto 0.3 X10*3/uL (0.1-1.2); Monocytes Percent Auto 5.3 % (2-11); Neutrophils Absolute Auto 3.7 x10*3/uL (2.0-8.3); Platelet Count 240 X10*3/uL (160-400); Red Blood Count 4.82 X10*6/uL (4.60-5.80); Red Cell Distribution Width 13.3 % (11.0-16.0); White Blood Count 6.2 X10*3/uL (4.8-10.8)
[2023-02-04 09:30] LABS: Prothrombin Time 11.4 SEC (10.0-13.1)
[2023-02-04 09:33] LABS: Partial Thromboplastin Time 34.2 SEC (26.0-36.4)
[2023-02-04 09:44] LABS: Alanine Aminotransferase 33 U/L (0-40); Albumin Level 4.1 g/dL (3.5-5.0); Alkaline Phosphatase 60 U/L (39-117); Anion Gap 11 (12-20); Aspartate Amino Transferase 19 U/L (5-37); Bilirubin Direct 0.1 mg/dL (0.0-0.5); Bilirubin Total 0.4 mg/dL (0.0-1.0); Blood Urea Nitrogen 15 mg/dL (9-16); Carbon Dioxide 22 mmol/L (22-29); Chloride 110 mmol/L (96-108); Creatinine Clr Calc Pharmacy 84.3; Estimated Glomerular Filt Rate > 60; Glucose Random 170 mg/dL (60-115); Potassium 4.1 mmol/L (3.3-5.1); Sodium 139 mmol/L (135-145); Total Protein 6.7 g/dL (6.5-8.0)
[2023-02-04 09:47] LABS: B Type Natriuretic Peptide 13 pg/mL (<100)
[2023-02-04 09:50] LABS: Troponin-I High Sensitivity 3.5 ng/L (<3.5-35.0)
[2023-02-04 11:11] VITALS: BP 135/76; PULSE 53; RESP 16; O2SAT 95
--- NOTE | 2023-02-04 11:14 | PC.NURSE ---
assumed care of pt at 1100, pt resting quietly in room with lights dimmed, reporting decreased chest pain, now 2/10, vss, a&ox4, pending 1200 repeat troponin. no new orders at this time.
--- NOTE | 2023-02-04 12:14 | P.CONCA_ITS ---
History of Present Illness History of Present Illness Date of Service: 02/04/23 Requesting physician: Nallely Durán Chief complaint: chest pain Narrative: 62 male with HLD and abnormal coronary CTA in the past presenting with chest pressure radiating to left arm at rest. He took a nitroglycerin which helped him but the discomfort did not go way and he decided to come to the emergency department. In the ER these ECG showed inferior T-wave inversions. He had mild discomfort after getting further nitroglycerin. Currently is describing very mild discomfort in his chest. No shortness of breath. He has been taking medications regularly otherwise. No bleeding concerns. He takes baby aspirin regularly. Nonsmoker. Family history of coronary disease and his dad had myocardial infarction at age 55. [facility] Past Medical History Medical History (Updated 02/04/23 @ 12:58 by Nic Johnson MD) Atherosclerotic cardiovascular disease Essential hypertension Hypertension Other and unspecified hyperlipidemia Family History Family History Mother No problems noted. Father High blood pressure Surgical History Surgical History History of extraction of renal calculus Social History Social History Housing: Apartment Alcohol intake: current Alcohol intake frequency: holidays/special occasions only Patient Tobacco Use Status: Never used Tobacco Smoked in Last 30 Days: No e-Cigarette/Vaping Use: Never Used Second Hand Smoke Exposure: No Use of substances other than those prescribed or required for medical reasons: No Advance Directives: No service: No Current occupational status: employed Cognitive needs: No Hearing needs: No Vision needs: No Meds Allergies Allergy/AdvReac Type Severity Reaction Status Date / Time No Known Allergies Allergy Verified 01/11/23 10:24 Home Medications Medication Instructions Recorded Confirmed Last Taken Type aspirin 81 mg tablet,delayed 81 mg PO DAILY 11/22/20 01/11/23 Unknown History release (Adult Low Dose Aspirin) multivit,Ca,min-iron 8 mg-folic 1 tab PO DAILY 11/22/20 01/11/23 Unknown History acid 200 mcg-lycopene 600 mcg tablet (Centrum Men) Physical Exam Vital Signs: Vital Signs: Last Vital Signs Temp 98.1 F 02/04/23 08:54 Pulse 53 02/04/23 11:11 Resp 16 02/04/23 11:11 BP 135/76 02/04/23 11:11 Pulse Ox 95 02/04/23 11:11 O2 Del Method Room Air 02/04/23 11:11 BMI result Body Mass Index 28.1 GENERAL APPEARANCE: in no acute distress, pleasant. NECK: no carotid bruit, no jugular venous distention. SKIN: no suspicious lesions, warm and dry. HEART: no murmurs, regular rate and rhythm. LUNGS: clear to auscultation bilaterally. ABDOMEN: soft, nontender. EXTREMITIES: no edema. PERIPHERAL PULSES: equal. NEUROLOGIC: No gross deficits, AAO X 3 Objective Labs and Meds 02/04/23 09:09 02/04/23 09:09 Lab results: Laboratory Results - last 24 hr 02/04/23 02/04/23 02/04/23 09:09 09:09 09:09 WBC 6.2 RBC 4.82 Hgb 14.2 Hct 41.9 L MCV 86.9 MCH 29.5 MCHC 33.9 RDW 13.3 Plt Count 240 MPV 9.3 L Immature Gran % (Auto) 0.2 Neut % (Auto) 59.0 Lymph % (Auto) 31.5 [place] % (Auto) 5.3 Eos % (Auto) 2.9 Baso % (Auto) 1.1 Lymph # (Auto) 2.0 [place] # (Auto) 0.3 Eos # (Auto) 0.2 Baso # (Auto) 0.1 Abs Immat Gran (auto) 0.01 Absolute Neuts (auto) 3.7 Absolute Nucleated RBC 0.000 Nucleated RBC % (auto) 0.0 PT INR APTT Sodium 139 Potassium 4.1 Chloride 110 H Carbon Dioxide 22 Anion Gap 11 L BUN 15 Creatinine 0.86 Estim Creat Clear Calc 84.3 Estimated GFR > 60 Random Glucose 170 H Calcium 9.0 Magnesium 2.0 Total Bilirubin 0.4 Direct Bilirubin 0.1 AST 19 ALT 33 Alkaline Phosphatase 60 Troponin I High Sens 3.5 B-Natriuretic Peptide Total Protein 6.7 Albumin 4.1 02/04/23 02/04/23 02/04/23 09:09 09:09 09:09 WBC RBC Hgb Hct MCV MCH MCHC RDW Plt Count MPV Immature Gran % (Auto) Neut % (Auto) Lymph % (Auto) [place] % (Auto) Eos % (Auto) Baso % (Auto) Lymph # (Auto) [place] # (Auto) Eos # (Auto) Baso # (Auto) Abs Immat Gran (auto) Absolute Neuts (auto) Absolute Nucleated RBC Nucleated RBC % (auto) PT 11.4 INR 1.0 APTT 34.2 Cancelled Sodium Potassium Chloride Carbon Dioxide Anion Gap BUN Creatinine Estim Creat Clear Calc Estimated GFR Random Glucose Calcium Magnesium Total Bilirubin Direct Bilirubin AST ALT Alkaline Phosphatase Troponin I High Sens B-Natriuretic Peptide 13 Total Protein Albumin Imaging Radiologist's impression: Impressions Chest X-Ray 02/04/23 09:03 IMPRESSION: No acute disease. Assessment and Plan (1) Acute coronary syndrome: Status: Acute Plan 62-year-old gentleman with hyperlipidemia and prediabetes presenting with chest discomfort at rest. Clinical story is quite concerning for acute coronary syndrome. His ECG has inferior T-wave inversions. Previously he has ECG is also showed inferior Q-waves. Start him on heparin drip ACS protocol. Continue baby aspirin. 1 in of nitroglycerin paste. Continue rosuvastatin. We will transfer him to [facility] for potential cardiac catheterization tomorrow. Keep NPO after midnight. No Plavix or Brilinta currently as he has diffuse plaque on coronary CTA and can have multivessel disease. We will do a limited echocardiogram on him before he leaves to define any wall motion abnormalities. Thank you for allowing me to participate in the care of your patient. Please feel free to contact me if you have any questions. Time Spent With Patient Time: Total time managing care of this patient today ____ minutes. Procedures Date of Service Date of Service: 02/04/23
[2023-02-04 12:44] VITALS: BMI 27.8
[2023-02-04 12:46] VITALS: PULSE 61
[2023-02-04] MEDS: Nitroglycerin 2 % Oint 1 GM Packet 1 INCH TRANSDERMA (12:46)
--- NOTE | 2023-02-04 12:59 | PC.NURSE ---
pt medicated per MAR with nitro paste, pt reporting 2-3/10 chest pain, 2nd 20G IV placed right wrist prior to starting heparin, weight updated from standing scale at bedside, [facility].
[2023-02-04 13:03] LABS: COVID-19 Test Negative (Negative); IDNOW Serial# BCCEAD1C
--- NOTE | 2023-02-04 13:16 | ECG_ITS ---
Test Reason : CHEST PAIN/REPEAT Blood Pressure : / mmHG Vent. Rate : 054 BPM Atrial Rate : 054 BPM P-R Int : 208 ms QRS Dur : 088 ms QT Int : 384 ms P-R-T Axes : 038 005 027 degrees QTc Int : 364 ms Sinus bradycardia Inferior infarct (cited on or before 08-DEC-2021) Abnormal ECG When compared with ECG of 04-FEB-2023 08:42, Nonspecific T wave abnormality has replaced inverted T waves in Inferior leads Referred By: Nallely Durán Electronically Signed By:Nic Johnson
--- NOTE | 2023-02-04 13:24 | PC.NURSE ---
u/s at bedside for echo, EKG delayed pending echo completion, labs drawn for heparin - heparin administration pending lab results.
[2023-02-04 13:26] LABS: Troponin-I High Sensitivity 4.1 ng/L (<3.5-35.0)
[2023-02-04 13:28] LABS: Hematocrit 47.4 % (42.0-52.0); Mean Corpuscular HGB Conc 33.8 g/dl (31.0-36.0); Mean Corpuscular Volume 88.8 fL (80.0-98.0); Mean Platelet Volume 9.3 fL (9.4-12.4); Platelet Count 239 X10*3/uL (160-400); Red Blood Count 5.34 X10*6/uL (4.60-5.80); Red Cell Distribution Width 13.5 % (11.0-16.0); White Blood Count 8.2 X10*3/uL (4.8-10.8)
[2023-02-04 13:32] LABS: Prothrombin Time 11.1 SEC (10.0-13.1)
[2023-02-04 13:35] LABS: PTT Heparin Drip 33.7 SEC (53-77.9)
[2023-02-04] MEDS: Heparin Sodium,Porcine/1/2NS 25,000 UNIT/250 ML IV.SOLN 8.81 UNIT IVCONT (13:58)
--- NOTE | 2023-02-04 14:01 | MHC.EDTECH ---
ACCEPTED @ [facility] BY DR JANELLE XIAO [place] [address] ROOM 31 WITH A RN TO RN # OF [phone]
[2023-02-04 14:03] VITALS: BP 142/85; PULSE 59; RESP 16; O2SAT 95
--- NOTE | 2023-02-04 14:04 | PC.NURSE ---
pt medicated per DEC, heparin started at 12u/kg/hr per wt based protocol, next PTT due at 1999, pt resting quietly pending transport, at bedside.
--- NOTE | 2023-02-04 14:27 | PC.NURSE ---
RN-RN report given. Plan for pt to transfer to [facility], Floor 7, Room 31, Dr Newton, .
== END 2023-02-04 14:38 | disposition short-term general hospital (02) ==
PROVIDERS: Physician Assistant; Emergency Provider Emergency Medicine; PCP Internal Medicine
DX: R07.9 Chest pain, unspecified (principal); Z20.822 Contact with and (suspected) exposure to COVID-19; I10 Essential (primary) hypertension; E78.5 Hyperlipidemia, unspecified; Z79.82 Long term (current) use of aspirin; Z79.02 Long term (current) use of antithrombotics/antiplatelets; Z79.899 Other long term (current) drug therapy
CPT/HCPCS: 36415; 71045; 80048; 80076; 83735; 83880; 84484; 85025; 85027; 85610; 85730; 87635; 93005; 93308; 96365; 99285; J1643; Q9957

== ENCOUNTER 2023-03-11 07:40 | Outpatient (REF) | payer OTHER, SELFPAY ==
[2023-03-11 08:28] LABS: Estimated Average Glucose 108 mg/dL; Hemoglobin A1C 114.5256 umol/L; Hemoglobin A1c % 5.4 %
[2023-03-11 09:10] LABS: Alanine Aminotransferase 42 U/L (0-40); Albumin Level 3.9 g/dL (3.5-5.0); Alkaline Phosphatase 99 U/L (39-117); Aspartate Amino Transferase 20 U/L (5-37); Bilirubin Direct 0.1 mg/dL (0.0-0.5); Bilirubin Total 0.4 mg/dL (0.0-1.0); Cholesterol 100 mg/dL; Glucose Fasting 98 mg/dL (60-99); HDL Cholesterol 32 mg/dL; LDL Cholesterol Calculated 47 mg/dl; Total Protein 7.1 g/dL (6.5-8.0); Triglycerides 105 mg/dL
== END 2023-03-11 07:41 | disposition home or self-care (01) ==
LOC: HO.LAB 07:40
PROVIDERS: PCP Internal Medicine; Visit Provider Internal Medicine
DX: I25.10 Atherosclerotic heart disease of native coronary artery without angina pectoris (principal); R73.9 Hyperglycemia, unspecified; E78.5 Hyperlipidemia, unspecified; I10 Essential (primary) hypertension; Z95.1 Presence of aortocoronary bypass graft
CPT/HCPCS: 36415; 80061; 80076; 82947; 83036

== ENCOUNTER → 2023-04-07 10:49 | Outpatient (REF) | payer OTHER, SELFPAY ==
--- NOTE | 2023-04-07 10:51 | CA_ITS ---
Transthoracic Echocardiogram Amended Patient (Last, First, Middle): Dave Vail, Gender: Male Date of : 1960 Age: 62 Procedure Date: 04/07/2023 Procedure Type: Transthoracic Echocardiogram Location: OP Height: 162.56 cm Weight: 70.76 kg BSA: 1.76 m2 Heart Rate: bpm BP: 125 / 80 mmHg Automation Control Integrator: TO Referring MD: Martin Lombardo MD Adjunct Instructor Of Women'S Studies: Mateo Gonzalez MD Symptoms: I25.10 - Atherosclerotic heart disease of [place] coronary artery without... Study Quality: Fair ECG Rhythm: Sinus Conclusions: - 1. Normal LV systolic function with regional wall motion abnormality consistent with underlying coronary artery disease 2. Normal cardiac valvular Doppler 3. Normal RV systolic pressure 4. No gross pericardial effusion Findings Left Ventricle Normal left ventricular size, thickness, and systolic function. The visually estimated ejection fraction is between 55-60%. There is paradoxical septal motion consistent with post-operative status. Spectral Doppler is indicative of a normal filling pattern. E/E prime ratio is <8, consistent with normal filling pressures. Evidence suggests grade I (mild) diastolic dysfunction. Peak GLS is -18%, within normal limits Wall Motion Rest Echo Findings The mid inferior and mid inferoseptal segments are hypokinetic. The basal inferior and basal inferoseptal segments are akinetic. All other scored wall segments showed normal motion. Right Ventricle Normal right ventricular cavity size and systolic function. Moderately reduced TAPSE, could be seen in patient is post pericardiotomy Atria The left atrium is normal in size. There is no evidence of interatrial shunt. The right atrium is normal in size. Aortic Valve Normal aortic valve structure and function. There is no aortic valve stenosis. There is no aortic valve regurgitation. Mitral Valve Normal mitral valve structure and function. There is mild mitral annular calcification. There is trace mitral valve regurgitation. There is no mitral valve stenosis. Pulmonic Valve The pulmonic valve was not well visualized. Tricuspid Valve Normal tricuspid valve structure. There is trace tricuspid valve regurgitation. The right ventricular systolic pressure is normal. The right ventricular systolic pressure is 19 mmHg. Normal right atrial pressure. There is no evidence of pulmonary hypertension. Great Vessels All visible segments of the aorta are normal in size. The pulmonary artery was not well visualized. Venous The inferior vena cava is normal in size and collapses greater than 50% with inspiration. Pericardium/Pleural There is no evidence of pericardial effusion. Measurements 2D Linear Measurements IVSd: 1.02 0.6-0.9/0.6-1.0 cm LVIDd: 5.46 3.9-5.3/4.2-5.9 cm LVIDd Index: 3.10 2.4-3.2/2.2-3.1 cm/m2 LVIDs: 3.29 2.0-3.6 cm LVPWd: 0.78 0.7-1.1 cm LA Diam: 3.80 2.7-3.8/3.0-4.0 cm LAIDs Index: 2.16 1.5-2.3 cm/m2 LV Mass: 229.01 67-162/88-224 g LV Mass Index: 130.12 43-95/49-115 g/m2 LVOT Diam: 2.10 3.0+(-)1.3 cm 2D Volumes LA Vol: 28.40 2D Systolic Function EF 4C: 63.30 >55% EF 2C: 50.90 >55% EF BiP: 58.70 >55% Mitral Valve MV Pk E: 0.63 MV PK A: 0.48 MV Decel Time: 244.00 E/A: 1.30 E'Lateral: 19.50 E'Medial: 6.09 E/E' Med: 10.30 E/E' Lat: 3.20 PHT: 71.00 MVA PHT: 3.10 Decel [place]: 2.58 Aortic Valve AoV Pk Andrea: 1.31 AoV Mn Andrea: 0.87 AoV VTI: 0.28 AoV Pk Grad: 7.00 Aov Mn Grad: 3.00 EDNA Cont.VTI: 2.07 LVOT LVOT Pk Andrea: 0.74 LVOT Mn Andrea: 0.51 LVOT VTI: 0.17 LVOT Pk Grad: 2.00 LVOT Mn Grad: 1.00 LVOT Diam: 2.10 LVOT Area: 3.46 Diastolic Function MV Pk E: 0.63 MV Pk A: 0.48 E/A: 1.30 E'Medial: 6.09 E/E' Med: 10.30 E' Laterial: 19.50 E/E' Lat: 3.20 Right Ventricle TAPSE (mm): 11.50 TVS' Andrea: 5.55 Tricuspid Valve TR Pk Andrea: 1.98 TR Pk Grad: 16.00 RA Press: 3.00 RVSP: 19.00 Great Vessels Aorta Sinus of Valsalva: 3.44 2.0-3.5 cm Ao Asc: 3.30 2.1-3.4 cm Updated in Other Vendor System with Status of Final Mateo Gonzalez MD electronically signed on 04/07/2023 1:06:13 PM with status of Final
== END ==
LOC: HO.CARD 10:49
PROVIDERS: PCP Internal Medicine; Visit Provider Internal Medicine
DX: I25.10 Atherosclerotic heart disease of native coronary artery without angina pectoris (principal); Z95.1 Presence of aortocoronary bypass graft
CPT/HCPCS: 93306; 93356

== ENCOUNTER 2023-06-23 10:35 | Outpatient (AMB) | payer OTHER, SELFPAY ==
[2023-05-14 12:51] VITALS: BP 124/68; BP 138/72; BMI 28.0
[2023-06-23 10:38] VITALS: BP 128/76; PULSE 55; O2SAT 98; BMI 28.7
--- NOTE | 2023-06-23 10:38 | A.OFFPC_ITS ---
Vital Signs 06/23/23 10:38 Height 5 ft 4 in Weight 167 lb BMI 28.7 BP 128/76 Blood Pressure Location Lt brachial Position Sitting Pulse 55 Pulse Source Pulse Oximeter Pulse Oximetry (%) 98 Oxygen Delivery Method Room Air Intake Visit Reasons: 3 month f/u Translator/Interpreter: Not Required per policy Accompanied by: Self / Same As Patient Allergies No Known Allergies Allergy (Verified 06/23/23 10:39) Medication List - Last Reconciled 06/23/23 by Nikolai Harman MD aspirin (Adult Low Dose Aspirin) 81 mg PO DAILY clopidogrel 75 mg PO DAILY metformin ER 500 mg PO BID metoprolol tartrate 50 mg PO BID 90 days mv,Ca,lpk-bxnd-BT-lycopene 8 mg iron- 200 mcg-600 mcg (Centrum Men) 1 tab PO DAILY rosuvastatin 40 mg PO DAILY Tobacco use date assessed: 02/18/23 Dental Screening Dental Screen Date: 06/23/23 Did you have a dental visit in the last 12 months?: No Did you have a dental problem in the last 6 months where you did not have access to dental care?: No Was dental information given to patient?: Patient has dentist HPI 3 month f/u HPI Details DM hyperlipidemia and htn; doing well; A1C 6.7 PFSH Medical History Atherosclerotic cardiovascular disease Other and unspecified hyperlipidemia Essential hypertension Hypertension Surgical History History of extraction of renal calculus Family History Mother No problems noted. Father High blood pressure Social History Housing: Apartment Alcohol intake: current Alcohol intake frequency: holidays/special occasions only Patient Tobacco Use Status: Never used Tobacco e-Cigarette/Vaping Use: Never Used Second Hand Smoke Exposure: No service: No Current occupational status: employed Cognitive needs: No Hearing needs: No Vision needs: No Questionnaire PHQ-9 Over the last 2 weeks, how often have you been bothered by any of the following problems? 1. Little interest or pleasure in doing things: not at all 2. Feeling down, depressed, or hopeless: not at all 3. Trouble falling or staying asleep, or sleeping too much: not at all 4. Feeling tired or having little energy: not at all 5. Poor appetite or overeating: not at all 6. Feeling bad about yourself - or that you are a failure or have let yourself or your family down: not at all 7. Trouble concentrating on things, such as reading the newspaper or watching television: not at all 8. Moving or speaking so slowly that other people could have noticed. Or the opposite - being so fidgety or restless that you have been moving around a lot more than usual: not at all 9. Thoughts that you would be better off or of hurting yourself in some way: not at all Total score: 0 Depression Screening Interpretation: Negative 73223 - PHQ-9 Billing: Yes Source: Developed by Drs. Ti Douglas, Birdie Del Rosario, Maxx Siu and colleagues, with an educational edmond from [employer]. Thrive Questionnaire Date Thrive assessed: 03/22/23 Currently or been in a relationship where the following occur: no concerns reported AUDIT C Alcohol Use Questionnaire (AUDIT-C) Score Reviewed/Action Taken: Yes ARISTIDES-7 AMB Questionnaire ARISTIDES-7 Date ARISTIDES - 7 assessed: 03/22/23 Source: Developed by Drs. Ti Douglas, Birdie Del oRsario, Maxx Siu and colleagues, with an educational edmond from [employer]. ARISTIDES-7 Assessment Billing ARISTIDES-7 Assessment Tool: ARISTIDES-7 Assessment 65630 Review of Systems Const Denies chills, Denies headache(s) and Denies weight loss ENT Denies headache(s) Card Denies chest pain, Denies syncope, Denies irregular heart rhythm and Denies dyspnea Resp Denies chest congestion, Denies cough and Denies dyspnea GI Denies abdominal pain, Denies change in stool character, Denies nausea and Denies vomiting Musc Denies deformity and Denies joint swelling Neuro Denies syncope and Denies headache(s) Physical exam (Primary Care) Vital Signs: Last Vital Signs Pulse 55 06/23/23 10:38 BP 128/76 06/23/23 10:38 Pulse Ox 98 06/23/23 10:38 Oxygen Delivery Method Room Air 06/23/23 10:38 BMI result Body Mass Index 28.7 Tobacco/Smoking Status: Tobacco use Status Tobacco use date assessed 02/18/23 06/23/23 10:39 Patient Tobacco Use Status Never used Tobacco 06/23/23 10:39 e-Cigarette/Vaping Use Never Used 06/23/23 10:39 PHQ-9: PHQ-9 Score PHQ-9: Total score 0 06/23/23 10:39 Depression Screening Interpretation: Negative Thrive Assessment: Date of Thrive Assessment Date Thrive assessed 03/22/23 06/23/23 10:39 Currently or been in a relationship where the following occur: no concerns reported Const General: cooperative, healthy appearing and no acute distress Orientation/consciousness: oriented to person, oriented to place and oriented to time HENMT Head: Yes normal to inspection, Yes normocephalic and Yes atraumatic Mouth: Normal oral and palatal mucosa present and tongue normal Throat: Yes posterior oropharynx normal and Yes uvula midline Eyes General: appearance normal, both eyes and all related structures Neck Neck: Yes normal visual inspection, Yes full ROM and Yes no lymphadenopathy Thyroid: Thyroid normal Carotids: normal carotid upstroke Chest Chest palpation & inspection: normal inspection of the chest Resp Effort & Inspection: normal respiratory effort and able to speak in complete sentences Auscultation: clear to auscultation bilaterally Cardio Jugular venous distension: no JVD Palpation: normal PMI Rate: regular rate Rhythm: regular rhythm Heart sounds: S1 normal heart sound present and S2 normal heart sound present GI Inspection: Yes normal to inspection Palpation (GI): Soft to palpation and No hepatosplenomegaly present Auscultation: normal bowel sounds General: Yes no CVA tenderness Back/Spine/Pelvis Back: no CVA tenderness Skin General skin exam: no rashes or lesions noted Neuro General: oriented to person, oriented to place and oriented to time Extrem General: Yes normal to inspection and Yes full ROM Assessment and Plan Assessment & Plan (1) Diabetes mellitus with coincident hypertension: Code(s): E11.9 - Type 2 diabetes mellitus without complications; I10 - Essential (primary) hypertension Plan: stable; same rx (2) Hyperlipidemia: Code(s): E78.5 - Hyperlipidemia, unspecified Plan: stable; same rx (3) Hypertension: Code(s): I10 - Essential (primary) hypertension Plan: stable; same rx; do labs Orders: Orders Lipid Panel Today E78.5 - Hyperlipidemia, unspecified Complete Blood Count Auto Diff Today D64.9 - Anemia, unspecified Microalbumin, Random (w Creat) Today E11.69 - Type 2 diabetes mellitus with other specified complication, E66.01 - Morbid (severe) obesity due to excess calories AMB Hemoglobin A1c Today E11.9 - Type 2 diabetes mellitus without complications, I10 - Essential (primary) hypertension Comprehensive [place]. Panel Fast Today N28.9 - Disorder of kidney and ureter, unspecified Coding Level of Care Code Est Pt Level 4 (97849) Diagnoses Diabetes mellitus with coincident hypertension E11.9; I10 Hyperlipidemia E78.5 Hypertension I10 Additional Codes ARISTIDES-7 Assessment Billing - ARISTIDES-7 Assessment Tool: ARISTIDES-7 Assessment [id number] ([id number])
== END 2023-06-23 10:58 | disposition home or self-care (01) ==
PROVIDERS: PCP Internal Medicine; Visit Provider Internal Medicine
DX: E11.9 Type 2 diabetes mellitus without complications (principal); I10 Essential (primary) hypertension; E78.5 Hyperlipidemia, unspecified
CPT/HCPCS: 83036; 99214

== ENCOUNTER 2023-08-16 08:25 | Outpatient (REF) | payer OTHER, SELFPAY ==
[2023-05-14 12:51] VITALS: BP 124/68; BP 138/72; BMI 28.0
[2023-08-16 08:44] LABS: MANUAL DIFF FLAG NO
[2023-08-16 09:09] LABS: Basophils Absolute Auto 0.1 X10*3/uL (0.0-0.2); Basophils Percent Auto 0.9 % (0-2); Eosinophils Absolute Auto 0.1 X10*3/uL (0.0-0.4); Eosinophils Percent Auto 2.4 % (0-4); Hematocrit 43.7 % (42.0-52.0); Hemoglobin 14.6 g/dl (14.0-18.0); Imm Gran Abs Auto 0.02 X10*3/uL (0.00-0.03); Imm Gran Pct Auto 0.4 % (0.0-0.4); Lymphocytes Absolute Auto 2.2 X10*3/uL (1.2-4.9); Lymphocytes Percent Auto 39.6 % (20-40); Mean Corpuscular HGB Conc 33.4 g/dl (31.0-36.0); Mean Corpuscular Hemoglobin 28.7 pg (27.0-33.0); Mean Platelet Volume 9.4 fL (9.4-12.4); Monocytes Absolute Auto 0.4 X10*3/uL (0.1-1.2); Monocytes Percent Auto 6.6 % (2-11); Neutrophils Absolute Auto 2.8 x10*3/uL (2.0-8.3); Neutrophils Percent Auto 50.1 % (45-73); Platelet Count 205 X10*3/uL (160-400); Red Blood Count 5.08 X10*6/uL (4.60-5.80); Red Cell Distribution Width 14.5 % (11.0-16.0); White Blood Count 5.5 X10*3/uL (4.8-10.8)
[2023-08-16 09:40] LABS: Alanine Aminotransferase 42 U/L (0-40); Albumin Level 4.1 g/dL (3.5-5.0); Alkaline Phosphatase 62 U/L (39-117); Anion Gap 11 (12-20); Aspartate Amino Transferase 23 U/L (5-37); Bilirubin Total 0.6 mg/dL (0.0-1.0); Blood Urea Nitrogen 20 mg/dL (9-16); Calcium 8.9 mg/dL (8.4-10.2); Carbon Dioxide 23 mmol/L (22-29); Chloride 110 mmol/L (96-108); Cholesterol 126 mg/dL (<200); Estimated Glomerular Filt Rate > 60; Glucose Fasting 141 mg/dL (60-99); HDL Cholesterol 36 mg/dL (>40); LDL Cholesterol Calculated 65 mg/dL (<100); Potassium 4.1 mmol/L (3.3-5.1); Sodium 140 mmol/L (135-145); Total Protein 7.2 g/dL (6.5-8.0); Triglycerides 128 mg/dL (<150)
[2023-08-16 11:11] LABS: Creatinine Urine 109.77 mg/dL; Microalbumin Urine < 5.0 mg/L
== END 2023-08-16 08:26 | disposition home or self-care (01) ==
LOC: HO.LAB 08:25
PROVIDERS: PCP Internal Medicine; Visit Provider Internal Medicine
DX: E11.69 Type 2 diabetes mellitus with other specified complication (principal); D64.9 Anemia, unspecified; E66.01 Morbid (severe) obesity due to excess calories; N28.9 Disorder of kidney and ureter, unspecified; E78.5 Hyperlipidemia, unspecified
CPT/HCPCS: 36415; 80053; 80061; 82043; 82570; 85025

== ENCOUNTER 2023-08-19 11:05 | Outpatient (AMB) | payer OTHER, SELFPAY ==
[2023-05-14 12:51] VITALS: BP 124/68; BP 138/72; BMI 28.0
--- NOTE | 2023-08-19 11:07 | A.OFFVIS_ITS ---
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 Background of hypertension, hyperlipidemia. Recently underwent coronary CTA that showed multivessel CAD. Following that, he had ER visit with chest pain. Then transferred to [facility] for further care. Underwent cardiac catheterization followed by bypass surgery. Since last seen, he states he is actually doing quite good. No complaints like angina or shortness of breath or in fact anything cardiac sounding. He is back to his work and doing well. Compliant with medications. Also did cardiac rehab. [facility] Medical History Atherosclerotic cardiovascular disease Other and unspecified hyperlipidemia Essential hypertension Hypertension Surgical History History of extraction of renal calculus Family History Mother No problems noted. Father High blood pressure Social History Housing: Apartment Alcohol intake: current Alcohol intake frequency: holidays/special occasions only Patient Tobacco Use Status: Never used Tobacco e-Cigarette/Vaping Use: Never Used Second Hand Smoke Exposure: No service: No Current occupational status: employed Cognitive needs: No Hearing needs: No Vision needs: No Review of Systems Const Denies weakness ENT Denies dizziness Card Denies chest pain, Denies chest pain with activity, Denies syncope, Denies rapid heart rate, Denies pedal edema, Denies edema, Denies leg edema, Denies lightheadedness, Denies palpitations, Denies dyspnea, Denies dyspnea on exertion and Denies orthopnea Resp Denies cough, Denies dyspnea and Denies dyspnea on exertion GI Denies hematochezia and Denies change in stool character Musc Denies abnormal gait, Denies muscle cramps, Denies muscle weakness, Denies num bness, Denies radiating pain into limb and Denies tingling Neuro Denies abnormal gait, Denies dizziness, Denies syncope, Denies numbness, Denies tingling and Denies weakness Endo Denies palpitations Physical Exam Vital Signs: Last Vital Signs Pulse 58 08/19/23 11:08 BP 128/70 08/19/23 11:08 BMI result Body Mass Index 29.1 Const General: comfortable and no acute distress Orientation/consciousness: patient oriented x3 HEENT Other: Unremarkable Head: Yes normal to inspection Neck Neck: Yes normal visual inspection Chest Chest palpation & inspection: normal inspection of the chest Resp Auscultation: clear to auscultation bilaterally Cardio Palpation: normal PMI Heart sounds: S1 normal heart sound present, S2 normal heart sound present, no gallops, no murmurs and no rubs GI Palpation (GI): Soft to palpation Back/Spine/Pelvis Other: unremarkable Skin General skin exam: no rashes or lesions noted Neuro General: patient oriented x3 Extrem General: Yes normal to inspection Psych Mental Status: mental status grossly normal Assessment & Plan Assessment & Plan (1) Atherosclerotic cardiovascular disease: Code(s): I25.10 - Atherosclerotic heart disease of [place] coronary artery without angina pectoris (2) Status post coronary artery bypass graft: Code(s): Z95.1 - Presence of aortocoronary bypass graft (3) Essential hypertension: Code(s): I10 - Essential (primary) hypertension (4) Other and unspecified hyperlipidemia: Code(s): E78.5 - Hyperlipidemia, unspecified Plan In the recent cardiac catheterization, he had multivessel disease including LAD and RCA. Status post CABG x3. Overall, doing well. Continue aspirin indefinitely. Plavix for 1 year from time of bypass. Continue beta-blockers and statins. Lipids are well controlled. Otherwise, stable. We will see him in 1 year. In the interim, he will call with concerns. Total time spent including review of data, counseling, documentation, coordi [facility]-31 minutes. Coding Level of Care Code Est Pt Level 4 (82457) Diagnoses Atherosclerotic cardiovascular disease I25.10 Status post coronary artery bypass graft Z95.1 Essential hypertension I10 Other and unspecified hyperlipidemia E78.5
[2023-08-19 11:08] VITALS: BP 128/70; PULSE 58; BMI 29.1
== END 2023-08-19 11:32 | disposition home or self-care (01) ==
PROVIDERS: PCP Internal Medicine; Visit Provider Internal Medicine
DX: I25.10 Atherosclerotic heart disease of native coronary artery without angina pectoris (principal); Z95.1 Presence of aortocoronary bypass graft; I10 Essential (primary) hypertension; E78.5 Hyperlipidemia, unspecified
CPT/HCPCS: 99214

== ENCOUNTER → 2023-08-19 11:05 | Outpatient (BNVA) | payer OTHER, SELFPAY ==
[2023-05-14 12:51] VITALS: BP 124/68; BP 138/72; BMI 28.0
== END ==
PROVIDERS: PCP Internal Medicine; Visit Provider Internal Medicine

== ENCOUNTER 2023-12-23 09:53 | Outpatient (AMB) | payer OTHER, SELFPAY ==
[2023-05-14 12:51] VITALS: BP 124/68; BP 138/72; BMI 28.0
--- NOTE | 2023-12-23 09:57 | A.OFFPC_ITS ---
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 Required: No Yoghurt Maker: Not Required per policy Accompanied by: Self / Same As Patient Allergies No Known Allergies Allergy (Verified 12/23/23 09:58) Medication List - Last Reconciled 12/23/23 by Nikolai Harman MD aspirin (Adult Low Dose Aspirin) 81 mg PO DAILY clopidogrel 75 mg PO DAILY metformin ER 500 mg PO BID metoprolol tartrate 50 mg PO BID 90 days mv,Ca,hqy-eypd-WD-lycopene 8 mg iron- 200 mcg-600 mcg (Centrum Men) 1 tab PO DAILY rosuvastatin 40 mg PO DAILY Tobacco use date assessed: 12/23/23 Dental Screening Dental Screen Date: 12/23/23 Did you have a dental visit in the last 12 months?: Yes Did you have a dental problem in the last 6 months where you did not have access to dental care?: No Was dental information given to patient?: Patient has dentist HPI Annual PE/6mth f/u HPI Details DM hyperlipidemia and CAD s/p bypass [facility] Medical History Atherosclerotic cardiovascular disease Other and unspecified hyperlipidemia Essential hypertension Hypertension Surgical History History of extraction of renal calculus Family History (Updated 12/23/23 @ 10:02 by MACK Hall) Mother No problems noted. Father High blood pressure Social History Housing: Apartment Alcohol intake: current Alcohol intake frequency: holidays/special occasions only Patient Tobacco Use Status: Never used Tobacco e-Cigarette/Vaping Use: Never Used Second Hand Smoke Exposure: No service: No Current occupational status: employed Cognitive needs: No Hearing needs: No Vision needs: No Questionnaire PHQ-9 Over the last 2 weeks, how often have you been bothered by any of the following problems? 1. Little interest or pleasure in doing things: not at all 2. Feeling down, depressed, or hopeless: not at all 3. Trouble falling or staying asleep, or sleeping too much: not at all 4. Feeling tired or having little energy: not at all 5. Poor appetite or overeating: not at all 6. Feeling bad about yourself - or that you are a failure or have let yourself or your family down: not at all 7. Trouble concentrating on things, such as reading the newspaper or watching television: not at all 8. Moving or speaking so slowly that other people could have noticed. Or the opposite - being so fidgety or restless that you have been moving around a lot more than usual: not at all 9. Thoughts that you would be better off or of hurting yourself in some way: not at all Total score: 0 Depression Screening Interpretation: Negative Depression Screening Done: Yes 16053 - PHQ-9 Billing: Yes Source: Developed by Drs. Ti Douglas, Birdie Del Rosario, Maxx Siu and colleagues, with an educational edmond from [employer]. Thrive Questionnaire Date Thrive assessed: 12/23/23 I am a: Patient What is your living situation today?: I have a steady place to live Within the past 12 months, did the food you bought not last and you didn't have the money to get more?: Never true Within the past 12 months, did you worry whether your food would run out before you got money to buy more?: Never true Do you have trouble paying for medicines?: No Do you have trouble getting transportation to medical appointments?: No Do you have trouble paying your heating and electricity bill?: No Do you have trouble taking care of your child, family member or friend?: No Do you have trouble with day-to-day activities such as bathing, preparing meals, shopping, managing finances, etc.?: No Are you currently unemployed and looking for a job?: No Are you interested in more education?: No Please select the resources that you would like help with: None THRIVE Score: 0 AUDIT C Alcohol Use Questionnaire (AUDIT-C) Score Reviewed/Action Taken: Yes ARISTIDES-7 AMB Questionnaire ARISTIDES-7 Date ARISTIDES - 7 assessed: 12/23/23 Feeling nervous, anxious, or on edge: 0 = Not at all Not being able to stop or control worryin = Not at all Worrying too much about different things: 0 = Not at all Trouble relaxin = Not at all Being so restless that it is hard to sit still: 0 = Not at all Becoming easily annoyed or irritable: 0 = Not at all Feeling afraid as if something awful might happen: 0 = Not at all Total ARISTIDES-7 score (0-4 normal; 5-9 mild; 10-14 moderate; 15-21 severe): 0 Source: Developed by Drs. Ti Douglas, Birdie Del Rosario, Maxx Siu and colleagues, with an educational edmond from [employer]. ARISTIDES-7 Assessment Billing ARISTIDES-7 Assessment Tool: ARISTIDES-7 Assessment 79609 Review of Systems Const Denies chills, Denies fatigue, Denies headache(s) and Denies weight loss Eyes Denies change in vision, Denies diplopia and Denies eye pain ENT Denies vertigo, Denies dizziness, Denies headache(s) and Denies nasal discharge Card Denies chest pain, Denies rapid heart rate and Denies dyspnea on exertion Resp Denies chest congestion, Denies cough, Denies pain with cough and Denies dyspnea on exertion GI Denies abdominal pain, Denies hematochezia and Denies change in bowel habits Musc Denies myalgias, Denies arthralgias and Denies joint swelling Skin/Breast Denies lesions and Denies unusual bruising Neuro Denies vertigo, Denies dizziness, Denies headache(s) and Denies focal weakness Endo Denies fatigue Physical exam (Primary Care) Vital Signs: Last Vital Signs Pulse 63 12/23/23 09:58 BP 120/76 12/23/23 09:58 Pulse Ox 98 12/23/23 09:58 Oxygen Delivery Method Room Air 12/23/23 09:58 BMI result Body Mass Index 29.0 Tobacco/Smoking Status: Tobacco use Status Tobacco use date assessed 12/23/23 12/23/23 09:59 Patient Tobacco Use Status Never used Tobacco 12/23/23 09:59 e-Cigarette/Vaping Use Never Used 12/23/23 09:59 PHQ-9: PHQ-9 Score PHQ-9: Total score 0 12/23/23 09:59 Depression Screening Interpretation: Negative Thrive Assessment: Date of Thrive Assessment Date Thrive assessed 12/23/23 12/23/23 09:59 Const General: cooperative, healthy appearing and no acute distress Orientation/consciousness: oriented to person, oriented to place and oriented to time HENMT Head: Yes normal to inspection, Yes normocephalic and Yes atraumatic Mouth: Normal oral and palatal mucosa present and tongue normal Throat: Yes posterior oropharynx normal and Yes uvula midline Eyes General: appearance normal, both eyes and all related structures Neck Neck: Yes normal visual inspection, Yes full ROM and Yes no lymphadenopathy Thyroid: Thyroid normal Carotids: normal carotid upstroke Chest Chest palpation & inspection: normal inspection of the chest Resp Effort & Inspection: normal respiratory effort and able to speak in complete sentences Auscultation: clear to auscultation bilaterally Cardio Jugular venous distension: no JVD Palpation: normal PMI Rate: regular rate Rhythm: regular rhythm Heart sounds: S1 normal heart sound present and S2 normal heart sound present GI Inspection: Yes normal to inspection Palpation (GI): Soft to palpation and No hepatosplenomegaly present Auscultation: normal bowel sounds General: Yes no CVA tenderness Back/Spine/Pelvis Back: no CVA tenderness Skin General skin exam: no rashes or lesions noted Neuro General: oriented to person, oriented to place and oriented to time Extrem General: Yes normal to inspection and Yes full ROM Assessment and Plan Assessment & Plan (1) Physical exam: Comment: labs Code(s): Z00.00 - Encounter for general adult medical examination without abnormal findings Plan: stable; do labs (2) Hyperlipidemia: Code(s): E78.5 - Hyperlipidemia, unspecified Plan: stable; same rx (3) Diabetes mellitus with coincident hypertension: Code(s): E11.9 - Type 2 diabetes mellitus without complications; I10 - Essential (primary) hypertension Plan: stable; same rx Orders: Orders Lipid Panel Today E78.5 - Hyperlipidemia, unspecified Comprehensive [place]. Panel Fast Today N28.9 - Disorder of kidney and ureter, unspecified Prostate Specific Antigen Scr Today Z00.00 - Encounter for general adult medical examination without abnormal findings Complete Blood Count Auto Diff Today D64.9 - Anemia, unspecified Hemoglobin A1c Today R73.9 - Hyperglycemia, unspecified Microalbumin, Random (w Creat) Today E11.69 - Type 2 diabetes mellitus with other specified complication, E66.01 - Morbid (severe) obesity due to excess calories Coding Level of Care Code Est Pt Prev Care 40-64y(21384) Diagnoses Physical exam Z00.00 Hyperlipidemia E78.5 Diabetes mellitus with coincident hypertension E11.9; I10 Additional Codes ARISTIDES-7 Assessment Billing - ARISTIDES-7 Assessment Tool: ARISTIDES-7 Assessment 18842 ([id number])
[2023-12-23 09:58] VITALS: BP 120/76; PULSE 63; O2SAT 98; BMI 29.0
== END 2023-12-23 10:17 | disposition home or self-care (01) ==
PROVIDERS: PCP Internal Medicine; Visit Provider Internal Medicine
DX: Z00.00 Encounter for general adult medical examination without abnormal findings (principal); E78.5 Hyperlipidemia, unspecified; E11.9 Type 2 diabetes mellitus without complications; I10 Essential (primary) hypertension
CPT/HCPCS: 99396

== ENCOUNTER 2024-02-28 09:17 | Emergency (ER) | payer OTHER, SELFPAY ==
[2023-05-14 12:51] VITALS: BP 124/68; BP 138/72; BMI 28.0
--- NOTE | ~2024-02-28 | XR_ITS ---
EXAMINATION: XR CHEST CLINICAL INFORMATION: Chest pain COMPARISON: 02/04/2023 TECHNIQUE: Frontal view of the chest was obtained. FINDINGS: Since the prior study, the patient has undergone median sternotomy and there are clips consistent with a CABG. Otherwise, no significant abnormality is noted involving the heart, lungs, mediastinum, bony thorax or soft tissues. XR/XR chest 1V IMPRESSION: No acute intrathoracic disease. Status post CABG.
--- NOTE | 2024-02-28 09:19 | ECG_ITS ---
Test Reason : chest pain Blood Pressure : / mmHG Vent. Rate : 060 BPM Atrial Rate : 060 BPM P-R Int : 190 ms QRS Dur : 090 ms QT Int : 422 ms P-R-T Axes : 059 021 069 degrees QTc Int : 422 ms Normal sinus rhythm Inferior infarct (cited on or before 08-DEC-2021) Abnormal ECG When compared with ECG of 04-FEB-2023 13:35, QT has lengthened Referred By: Generic ED Physician Electronically Signed By:Nic Johnson
[2024-02-28 09:51] VITALS: BP 168/86; PULSE 55; RESP 18; TEMP 36.2; O2SAT 99; BMI 28.9
[2024-02-28 10:09] LABS: MANUAL DIFF FLAG NO
[2024-02-28 10:12] LABS: Basophils Absolute Auto 0.1 X10*3/uL (0.0-0.2); Basophils Percent Auto 0.9 % (0-2); Eosinophils Absolute Auto 0.2 X10*3/uL (0.0-0.4); Eosinophils Percent Auto 4.1 % (0-4); Hematocrit 44.4 % (42.0-52.0); Imm Gran Abs Auto 0.02 X10*3/uL (0.00-0.03); Imm Gran Pct Auto 0.4 % (0.0-0.4); Mean Corpuscular HGB Conc 33.8 g/dl (31.0-36.0); Mean Corpuscular Hemoglobin 29.2 pg (27.0-33.0); Mean Corpuscular Volume 86.5 fL (80.0-98.0); Mean Platelet Volume 9.6 fL (9.4-12.4); Monocytes Absolute Auto 0.4 X10*3/uL (0.1-1.2); Monocytes Percent Auto 6.4 % (2-11); Neutrophils Absolute Auto 2.9 x10*3/uL (2.0-8.3); Neutrophils Percent Auto 52.2 % (45-73); Platelet Count 217 X10*3/uL (160-400); Red Blood Count 5.13 X10*6/uL (4.60-5.80); Red Cell Distribution Width 13.4 % (11.0-16.0); White Blood Count 5.6 X10*3/uL (4.8-10.8)
[2024-02-28 10:33] LABS: Alanine Aminotransferase 40 U/L (0-40); Alkaline Phosphatase 54 U/L (39-117); Anion Gap 13 (12-20); Aspartate Amino Transferase 21 U/L (5-37); Bilirubin Total 0.3 mg/dL (0.0-1.0); Blood Urea Nitrogen 16 mg/dL (9-16); Calcium 9.3 mg/dL (8.4-10.2); Carbon Dioxide 24 mmol/L (22-29); Chloride 108 mmol/L (96-108); Creatinine Clr Calc Pharmacy 64.1; Estimated Glomerular Filt Rate > 60; Glucose Random 211 mg/dL (60-115); Potassium 4.2 mmol/L (3.3-5.1); Sodium 141 mmol/L (135-145); Total Protein 7.1 g/dL (6.5-8.0)
--- NOTE | 2024-02-28 14:06 | ED_ITS ---
HPI - Chest Pain General Chief Complaint: Chest Pain Stated Complaint: chest pain Time Seen by Provider: 02/28/24 14:01 Source: patient and old records reviewed Mode of arrival: ambulatory Limitations: no limitations History of Present Illness ED Provider: KIRSTEN CEDILLO narrative: 63 yo male with PMH of HTN s/p 3V CABG 1 year ago at [facility] on aspirin who has done well did not mechanical fall 4 weeks ago over the past 1 week has had some central soreness, lower incision pain and hurts to move. No associated nausea, dyspnea, fevers or other injuries just wanted to be checked out. No recent travel MD complaint: chest pain Pertinent past history: coronary artery disease and CABG Onset (ago): week(s) (1) Timing of current episode: episodic Onset: during rest Pain location: substernal Pain radiation: none Severity: mild Quality: aching Relieving factors: rest Exacerbating factors: palpation and movement Context: trauma/injury Treatment prior to arrival: none Related Data Home Medications ?Medication ?Instructions ?Recorded ?Confirmed aspirin 81 mg tablet,delayed 81 mg PO DAILY 11/22/20 12/23/23 release (Adult Low Dose Aspirin) multivit,Ca,min-iron 8 mg-folic 1 tab PO DAILY 11/22/20 12/23/23 acid 200 mcg-lycopene 600 mcg tablet (Centrum Men) Previous Rx's ?Medication ?Instructions ?Recorded clopidogrel 75 mg tablet 75 mg PO DAILY #90 tabs 03/11/23 metformin 500 mg tablet,extended 500 mg PO BID #60 tabs 03/18/23 release 24 hr rosuvastatin 40 mg tablet 40 mg PO DAILY #90 tabs 04/02/23 metoprolol tartrate 50 mg tablet 50 mg PO BID #180 tabs 02/01/24 Allergies Allergy/AdvReac Type Severity Reaction Status Date / Time No Known Allergies Allergy Verified 02/28/24 09:53 Review of Systems 2 Review of Systems: Constitutional : No Weight loss, No Fever, No Chills ENT/Mouth : No sore throat, No Rhinorrhea Eyes: No Eye Pain, No Swelling Cardiovascular : pos Chest Pain, no SOB, no Dyspnea on Exertion, No Orthopnea, No Edema, No Palpitations Respiratory : No Cough, No Sputum Gastrointestinal : no Nausea, No Vomiting, No Diarrhea, No abdominal Pain, No Hematochezia, No Melena Genitourinary : No Dysuria, No Urinary Frequency Musculoskeletal : No joint pain, No Myalgias, No Joint Swelling Skin : No Skin Lesions, No rash Neuro : No Weakness, No Numbness, No Dizziness, No Headache All other systems reviewed and are negative [facility] Past Medical History Attestation statement: The following information was validated with the patient. Source: old records reviewed Medical History Atherosclerotic cardiovascular disease Other and unspecified hyperlipidemia Essential hypertension Hypertension Surgical History History of extraction of renal calculus Family History Family History (Updated 12/23/23 @ 10:02 by MACK Hall) Mother No problems noted. Father High blood pressure Social History Social History Housing: Apartment Alcohol intake: current Alcohol intake frequency: holidays/special occasions only Patient Tobacco Use Status: Never used Tobacco e-Cigarette/Vaping Use: Never Used Second Hand Smoke Exposure: No Advance Directives: No Advance Directives Information Provided: No service: No Current occupational status: employed Cognitive needs: No Hearing needs: No Vision needs: No Physical Exam 2 Vital Signs: Vital Signs: Last Vital Signs Temp 97.2 F 02/28/24 09:51 Pulse 55 02/28/24 09:51 Resp 18 02/28/24 09:51 BP 168/86 H 02/28/24 09:51 Pulse Ox 99 02/28/24 09:51 O2 Del Method Room Air 02/28/24 09:51 BMI result Body Mass Index 28.9 Appearance: Alert. Oriented X3. No acute distress. Eyes: Pupils equal, round and reactive to light. ENT: Pharynx normal. Neck: Normal inspection. Neck supple. CVS: Normal heart rate and rhythm. Pulses normal. Chest: lower incision mild ttp but no hematoma felt and very mild swelling noted Respiratory: No respiratory distress. Breath sounds normal. Abdomen: Soft and nontender. Skin: Skin warm and dry. Normal skin color. Normal skin turgor. Extremities: No lower extremity edema. No calf ttp Neuro: Oriented X 3. No motor deficit. No sensory deficit. Medical Decision Making Medical Decision Making MDM Narrative: 63 yo male with PMH of HTN s/p 3V CABG 1 year ago at [facility] on aspirin here with atypical anterior chest wall pain x 1 week worse with palpation and movement no associated signs of infection no large swelling suspect strain or trauma - labs, EKG, trop x 2, no risk factors for VTE, CXR to make sure wires in place. Differential Diagnosis Differential Diagnoses: The differential diagnosis associated with the presentation includes no risk factors for VTE atypical for ACS in setting of recent CABG seems more MSK lungs clear doubt PTX no infectious symptoms, pulses intact doubt dissection and 1 week of symptoms Admission/Observation Consideration of admission/observation: Escalation of care including admission/observation considered negative work up stable for DC Lab Data [facility] Lab Attestation statement: I reviewed the patient's lab results. 02/28/24 10:05 02/28/24 10:05 Labs: Lab Results 02/28/24 02/28/24 Range/Units 10:05 13:37 WBC 5.6 (4.8-10.8) X10*3/uL RBC 5.13 (4.60-5.80) X10*6/uL Hgb 15.0 (14.0-18.0) g/dl Hct 44.4 (42.0-52.0) % MCV 86.5 (80.0-98.0) fL MCH 29.2 (27.0-33.0) pg MCHC 33.8 (31.0-36.0) g/dl RDW 13.4 (11.0-16.0) % Plt Count 217 (160-400) X10*3/uL MPV 9.6 (9.4-12.4) fL Immature Gran % (Auto) 0.4 (0.0-0.4) % Neut % (Auto) 52.2 (45-73) % Lymph % (Auto) 36.0 (20-40) % Pettis % (Auto) 6.4 (2-11) % Eos % (Auto) 4.1 H (0-4) % Baso % (Auto) 0.9 (0-2) % Lymph # (Auto) 2.0 (1.2-4.9) X10*3/uL Pettis # (Auto) 0.4 (0.1-1.2) X10*3/uL Eos # (Auto) 0.2 (0.0-0.4) X10*3/uL Baso # (Auto) 0.1 (0.0-0.2) X10*3/uL Abs Immat Gran (auto) 0.02 (0.00-0.03) X10*3/uL Absolute Neuts (auto) 2.9 (2.0-8.3) x10*3/uL Absolute Nucleated RBC 0.000 (0.0-0.012) X10*3/uL Nucleated RBC % (auto) 0.0 (0.0-0.2) /100WBC Sodium 141 (135-145) mmol/L Potassium 4.2 (3.3-5.1) mmol/L Chloride 108 (96-108) mmol/L Carbon Dioxide 24 (22-29) mmol/L Anion Gap 13 (12-20) BUN 16 (9-16) mg/dL Creatinine 1.13 (0.5-1.4) mg/dL Estim Creat Clear Calc 64.1 Estimated GFR > 60 Random Glucose 211 H (60-115) mg/dL Calcium 9.3 (8.4-10.2) mg/dL Total Bilirubin 0.3 (0.0-1.0) mg/dL AST 21 (5-37) U/L ALT 40 (0-40) U/L Alkaline Phosphatase 54 (39-117) U/L Troponin I High Sens 3.0 3.0 (<3.5-35.0) ng/L Total Protein 7.1 (6.5-8.0) g/dL Albumin 4.0 (3.5-5.0) g/dL Independent Interpretation I performed an independent interpretation of an: EKG and Plain X-Ray (normal ) Interpretation: Rate: 61 Rhythm: NSR [place]: normal Normal P waves. Normal [place]. Normal QRS complex. ST T wave : old inf infarct nonspecific ST T wave changes lateral leads no JENNIFER qTC: 422 prior studies: unchanged The study has been interpreted contemporaneously by me. . Radiology Impression Discussion of test interpretation with radiology: I have reviewed the radiologist's reading. Discharge Plan Discharge Clinical Impression: Atypical chest pain, Acute chest wall pain Patient Disposition: Home, Self-Care Instructions: Chest Pain (ED), Chest Wall Pain (ED) Additional Instructions: normal heart tests x 2 for heart attack, Chest xray normal, EKG at baseline limit lifting to 10lbs over the next 2 weeks return for worsening symptoms or concerns Prescriptions: No Action metformin 500 mg tablet extended release 24 hr 500 mg PO BID Qty: 60 8RF rosuvastatin 40 mg tablet 40 mg PO DAILY Qty: 90 3RF metoprolol tartrate 50 mg tablet 50 mg PO BID Qty: 180 3RF aspirin [Adult Low Dose Aspirin] 81 mg tablet,delayed release (DR/EC) 81 mg PO DAILY Centrum Men 8 mg iron- 200 mcg-600 mcg tablet 1 tab PO DAILY clopidogrel 75 mg tablet 75 mg PO DAILY Qty: 90 3RF Print Language: Albanian
[2024-02-28 14:34] VITALS: BP 168/86; PULSE 55; RESP 18; TEMP 36.2; O2SAT 99
== END 2024-02-28 14:34 | disposition home or self-care (01) ==
PROVIDERS: Emergency Medicine; Emergency Provider Emergency Medicine; PCP Internal Medicine
DX: R07.89 Other chest pain (principal); R06.02 Shortness of breath; E11.9 Type 2 diabetes mellitus without complications; I10 Essential (primary) hypertension; E78.5 Hyperlipidemia, unspecified; Z95.1 Presence of aortocoronary bypass graft; Z79.82 Long term (current) use of aspirin; Z79.84 Long term (current) use of oral hypoglycemic drugs; Z79.02 Long term (current) use of antithrombotics/antiplatelets; Z79.899 Other long term (current) drug therapy
CPT/HCPCS: 36415; 71045; 80053; 84484; 85025; 93005; 99283

== ENCOUNTER → 2024-02-28 09:19 | Outpatient (BNV) | payer OTHER, SELFPAY ==
[2023-05-14 12:51] VITALS: BP 124/68; BP 138/72; BMI 28.0
== END ==
PROVIDERS: Emergency Provider Emergency Medicine; PCP Internal Medicine; Visit Provider Internal Medicine Cardiovascular Disease
DX: I45.81 Long QT syndrome (principal)
CPT/HCPCS: 93010

== ENCOUNTER 2024-04-04 08:03 | Outpatient (AMB) | payer OTHER, SELFPAY ==
[2023-05-14 12:51] VITALS: BP 124/68; BP 138/72; BMI 28.0
[2024-04-04 08:19] VITALS: BP 140/82; PULSE 56; BMI 29.1
--- NOTE | 2024-04-04 08:19 | MHC.OFFVIS ---
Vital Signs 04/04/24 08:19 Height 5 ft 4 in Weight 169 lb 5.04 oz BMI 29.1 BP 140/82 H Blood Pressure Location Lt brachial Position Sitting Pulse 56 Pulse Source Pulse Oximeter Intake Visit Reasons: [facility] D/C CHEST PAIN Skilled Nursing Case Manager Required: No Allergies No Known Allergies Allergy (Verified 04/04/24 08:21) Medication List - Last Reconciled 04/04/24 by Kim Schwartz NP-Brianna aspirin (Adult Low Dose Aspirin) 81 mg PO DAILY metformin ER 500 mg PO ONCE metoprolol tartrate 50 mg PO BID mv,Ca,xlb-lyaq-GZ-lycopene 8 mg iron- 200 mcg-600 mcg (Centrum Men) 1 tab PO DAILY rosuvastatin 40 mg PO DAILY HPI HPI [facility] D/C CHEST PAIN: Details: Jose is a 63 yo male with past medical history of hypertension, hyperlipidemia, diabetes, multivessel CAD status post three-vessel coronary artery bypass grafting 02/2023 who was seen in the emergency room last month after having a fall at home and developing chest discomfort. He ruled out for ACS. His discomfort was felt to be most likely musculoskeletal in nature. Today he reports that he has had various aching sensations in his left and mid chest region. Most of this has occurred since the time of his surgery however he did have increased left chest soreness following his mechanical fall a few weeks ago. Since then his symptom has gradually improved. Still has sensitivity along his incision line and some areas of decreased sensation in the left chest. No exertional chest discomfort. He has been using the treadmill at home 3 times weekly at a speed of 4 mph with 4% incline for 30 minutes at a time. No concerning shortness of breath, no PND, orthopnea or edema. No lightheadedness, presyncope, syncope, falls. His prior anginal symptom was left arm discomfort. He has not experienced any left arm discomfort since his surgery. He is taking all his meds as directed. Recently did stop his Plavix since it has been 1 year since his surgery. He does express much concern about his heart and wants to make sure everything is okay. [facility] Medical History Atherosclerotic cardiovascular disease Other and unspecified hyperlipidemia Essential hypertension Hypertension Surgical History History of extraction of renal calculus Family History Mother No problems noted. Father High blood pressure Social History Housing: Apartment Alcohol intake: current Alcohol intake frequency: holidays/special occasions only Patient Tobacco Use Status: Never used Tobacco e-Cigarette/Vaping Use: Never Used Second Hand Smoke Exposure: No service: No Current occupational status: employed Cognitive needs: No Hearing needs: No Vision needs: No Review of Systems Const All systems reviewed & are unremarkable except as noted in HPI and below ENT Denies dizziness Card Reports chest pain, Denies chest pain at rest, Denies chest pain with activity, Denies rapid heart rate, Denies pedal edema, Denies edema, Denies leg edema, Denies lightheadedness, Denies palpitations, Denies dyspnea, Denies dyspnea on exertion and Denies orthopnea Resp Denies cough, Denies dyspnea and Denies dyspnea on exertion GI Denies hematochezia and Denies change in stool character Musc Denies abnormal gait, Denies limited range of motion, Denies muscle cramps, Denies muscle weakness, Denies numbness, Denies radiating pain into limb, Denies stiffness and Denies tingling Neuro Denies abnormal gait, Denies dizziness, Denies numbness and Denies tingling Endo Denies palpitations Physical Exam Vital Signs: Last Vital Signs Pulse 56 04/04/24 08:19 BP 140/82 H 04/04/24 08:19 BMI result Body Mass Index 29.1 Const General: cooperative, healthy appearing, comfortable and no acute distress Orientation/consciousness: patient oriented x3 Neck Neck: Yes normal visual inspection Chest Other: sternal incision intact, reported tenderness to palpation of area along left sternal border to left mid chest. No swelling or bruisiing. Chest palpation & inspection: normal inspection of the chest Resp Effort & Inspection: normal respiratory effort Auscultation: clear to auscultation bilaterally, no crackles, no rales, no rhonchi and no wheezes Cardio Jugular venous distension: no JVD Rate: regular rate Rhythm: regular rhythm Heart sounds: S1 normal heart sound present, S2 normal heart sound present, no murmurs and no rubs Neuro General: patient oriented x3 Extrem General: Yes normal to inspection, No no pedal edema and No calf tenderness Psych Appearance: grossly normal Mental Status: mental status grossly normal Speech and movement: Normal speech and movement present Assessment & Plan Assessment & Plan (1) Precordial chest pain: Code(s): R07.2 - Precordial pain Category: Medical Plan: Recent reports of mid and left chest discomfort. He did have a mechanical fall at home a few days prior to recent ER evaluation for chest pains. He ruled out for ACS with normal troponins and EKG showing no acute ST or T-wave abnormalities. Chest x-ray was negative. Discomfort was felt to be musculoskeletal in nature. He was referred back to Cardiology in follow-up. Today he continues to report some aching to the mid and left chest region which occurs randomly. His pain is not continual. He has some areas of tenderness which have been present on and off since the time of surgery. He also reports some decreased sensation which have been present since surgery. He is concerned about the condition of his heart and wants to make sure that everything is okay. He does walk on the treadmill 3 times weekly for up to 30 minutes without any exertional chest discomfort. Offered reassurance that symptoms sounds more like musculoskeletal/chest wall symptoms. His last echocardiogram was done 04/07/2023 showing EF 55-60% with wall motion abnormality consistent with underlying CAD. Will update an echocardiogram to reassess EF and wall motion. Plan to call him with results. He would like a cardiology follow-up in 6 months. Can come sooner if needed. ED care if ever needed for concerning symptoms. Signs and symptoms of true angina reviewed. (2) Atherosclerotic cardiovascular disease: Code(s): I25.10 - Atherosclerotic heart disease of [place] coronary artery without angina pectoris Category: Medical Plan: Prior reports of chest and left arm discomfort. He underwent a coronary CTA on 12/18/2022 which showed coronary artery disease with moderate to severe plaque burden. He then underwent cardiac catheterization on 02/05/2023 showing severe RCA and LAD disease. He underwent coronary artery bypass grafting x3 on 02/10/2023. Last echocardiogram as above. He has had some anterior chest wall discomfort intermittent over the last year. He recently stopped Plavix as it has been 1 year. He was seen in the ER on 02/28/24 for chest discomfort that was deemed to be musculoskeletal in nature. Today he reports no anginal sounding symptoms. He expresses much concern about his chest symptoms. Will update echocardiogram to ensure that EF and wall motion is unchanged. Plan to call him with results. Will have him continue on aspirin indefinitely. Continue rosuvastatin with ideal LDL goal less than 70. Labs done 08/16/2023 had shown LDL 65. Continue metoprolol. Blood pressure mildly elevated in the office today at 140/82. He reports home blood pressures range 120 to 130 systolic. Continue activity as tolerated. Signs and symptoms of true angina reviewed. (3) Status post coronary artery bypass graft: Comment: 02/10/2023, kan to LAD, SVG to PDA and PLV Code(s): Z95.1 - Presence of aortocoronary bypass graft Category: Surgical Plan: As above (4) Essential hypertension: Code(s): I10 - Essential (primary) hypertension Category: Medical Plan: As above (5) Other and unspecified hyperlipidemia: Code(s): E78.5 - Hyperlipidemia, unspecified Category: Medical Plan: As above Plan Time spent on chart review, documentation, interview and assessment Orders: Orders CA echo transthoracic complete Today I25.10 - Atherosclerotic heart disease of [place] coronary artery without angina pectoris, R07.2 - Precordial pain, Z95.1 - Presence of aortocoronary bypass graft Coding Level of Care Code Est Pt Level 4 (23034) Diagnoses Precordial chest pain R07.2 Atherosclerotic cardiovascular disease I25.10 Status post coronary artery bypass graft Z95.1 Essential hypertension I10 Other and unspecified hyperlipidemia E78.5 Time Spent (min) 28
== END 2024-04-04 08:46 | disposition home or self-care (01) ==
PROVIDERS: PCP Internal Medicine; Visit Provider Nurse Practitioner Family
DX: R07.2 Precordial pain (principal); I25.10 Atherosclerotic heart disease of native coronary artery without angina pectoris; Z95.1 Presence of aortocoronary bypass graft; I10 Essential (primary) hypertension; E78.5 Hyperlipidemia, unspecified
CPT/HCPCS: 99214

== ENCOUNTER → 2024-04-04 08:03 | Outpatient (BNVA) | payer OTHER, SELFPAY ==
[2023-05-14 12:51] VITALS: BP 124/68; BP 138/72; BMI 28.0
== END ==
PROVIDERS: PCP Internal Medicine; Visit Provider Nurse Practitioner Family

== ENCOUNTER → 2024-04-25 09:42 | Outpatient (REF) | payer OTHER, SELFPAY ==
[2023-05-14 12:51] VITALS: BP 124/68; BP 138/72; BMI 28.0
--- NOTE | 2024-04-25 09:46 | CA_ITS ---
Transthoracic Echocardiogram Patient (Last, First, Middle): Dave Vail, Gender: Male Date of : 1960 Age: 63 Procedure Date: 04/25/2024 Procedure Type: Transthoracic Echocardiogram Location: OP Height: 162.56 cm Weight: 75.75 kg BSA: 1.81 m2 Heart Rate: bpm BP: 138 / 90 mmHg Scratch Brusher: TO Referring MD: Kim Schwartz BIOLOGY RESEARCH ASSISTANT-C Acid Plant Helper: Mateo Gonzalez MD Symptoms: R07.2 - Precordial pain Study Quality: Adequate w contrast ECG Rhythm: Sinus Conclusions: - 1. Normal LV ejection fraction 55-60% with underlying regional wall motion abnormality consistent with coronary artery disease 2. Normal cardiac valvular Dopplers 3. Normal RV systolic pressure 4. No gross pericardial effusion Findings Procedure Information Contrast agent, definity, is being given per protocol without apparent complications. Left Ventricle Normal left ventricular size, thickness, and systolic function. The visually estimated ejection fraction is between 55-60%. Spectral Doppler is indicative of a normal filling pattern. Wall Motion Rest Echo Findings The basal inferior and basal inferoseptal segments are hypokinetic. All other scored wall segments showed normal motion. Right Ventricle Mildly increased right ventricular cavity size. There is moderately decreased right ventricular systolic function. Atria The left atrium is likely dilated. Interatrial shunt cannot be excluded. The right atrium is likely dilated. Aortic Valve Normal aortic valve structure and function. There is no aortic valve stenosis. There is no aortic valve regurgitation. Mitral Valve Normal mitral valve structure and function. There is trace mitral valve regurgitation. There is no mitral valve stenosis. Pulmonic Valve The pulmonic valve was not well visualized. Tricuspid Valve Likely normal tricuspid valve structure and function. There is trace tricuspid valve regurgitation. The right ventricular systolic pressure is normal. The right ventricular systolic pressure is 16 mmHg. Normal right atrial pressure. There is no evidence of pulmonary hypertension. Great Vessels All visible segments of the aorta are normal in size. The pulmonary artery was not well visualized. There is no dilatation of the ascending aorta measuring 3.40 cm. Venous The inferior vena cava is normal in size and collapses greater than 50% with inspiration. Pericardium/Pleural There is no evidence of pericardial effusion. Prior Study Comparison No significant change compared to prior study dated: 04/07/2023. Measurements 2D Linear Measurements IVSd: 1.19 0.6-0.9/0.6-1.0 cm LVIDd: 5.18 3.9-5.3/4.2-5.9 cm LVIDd Index: 2.86 2.4-3.2/2.2-3.1 cm/m2 LVIDs: 3.54 2.0-3.6 cm LVPWd: 0.86 0.7-1.1 cm LA Diam: 4.10 2.7-3.8/3.0-4.0 cm LAIDs Index: 2.27 1.5-2.3 cm/m2 LV Mass: 247.68 67-162/88-224 g LV Mass Index: 136.84 43-95/49-115 g/m2 LVOT Diam: 2.10 3.0+(-)1.3 cm 2D Systolic Function EF 4C: 56.70 >55% Mitral Valve MV Pk E: 0.53 MV PK A: 0.40 MV Decel Time: 316.00 E/A: 1.30 E'Lateral: 9.46 E'Medial: 5.33 E/E' Med: 10.00 E/E' Lat: 5.60 PHT: 92.00 MVA PHT: 2.39 Decel Hart: 1.68 Aortic Valve AoV Pk Andrea: 1.21 AoV Mn Andrea: 0.89 AoV VTI: 0.26 AoV Pk Grad: 6.00 Aov Mn Grad: 3.00 EDNA Cont.VTI: 2.28 LVOT LVOT Pk Andrea: 0.71 LVOT Mn Andrea: 0.49 LVOT VTI: 0.17 LVOT Pk Grad: 2.00 LVOT Mn Grad: 1.00 LVOT Diam: 2.10 LVOT Area: 3.46 Diastolic Function MV Pk E: 0.53 MV Pk A: 0.40 E/A: 1.30 E'Medial: 5.33 E/E' Med: 10.00 E' Laterial: 9.46 E/E' Lat: 5.60 Right Ventricle TAPSE (mm): 11.20 TVS' Andrea: 6.37 Tricuspid Valve TR Pk Andrea: 1.83 TR Pk Grad: 13.00 RA Press: 3.00 RVSP: 16.00 Great Vessels Aorta Sinus of Valsalva: 3.43 2.0-3.5 cm Ao Asc: 3.40 2.1-3.4 cm Updated in Other Vendor System with Status of Final Mateo Gonzalez MD electronically signed on 04/25/2024 4:32:12 PM with status of Final
== END ==
LOC: HO.CARD 09:42
PROVIDERS: PCP Internal Medicine; Visit Provider Nurse Practitioner Family
DX: R07.2 Precordial pain (principal); I25.110 Atherosclerotic heart disease of native coronary artery with unstable angina pectoris; Z95.1 Presence of aortocoronary bypass graft
CPT/HCPCS: 93306; Q9957

== ENCOUNTER → 2024-04-25 09:46 | Outpatient (BNV) | payer OTHER, SELFPAY ==
[2023-05-14 12:51] VITALS: BP 124/68; BP 138/72; BMI 28.0
== END ==
PROVIDERS: PCP Internal Medicine; Visit Provider Internal Medicine Cardiovascular Disease
DX: R07.2 Precordial pain (principal); R93.1 Abnormal findings on diagnostic imaging of heart and coronary circulation
CPT/HCPCS: 93306

== ENCOUNTER 2024-06-07 10:03 | Outpatient (REF) | payer OTHER, SELFPAY ==
[2023-05-14 12:51] VITALS: BP 124/68; BP 138/72; BMI 28.0
--- NOTE | ~2024-06-07 | XR_ITS ---
EXAMINATION: XR HAND, LEFT CLINICAL INFORMATION: Left hand/thumb pain COMPARISON: None available. TECHNIQUE: AP and lateral views of the left hand. FINDINGS: Moderate osteoarthritis of the 1st CMC joint. Mild osteoarthritis of the radiocarpal joint and distal radioulnar joint. No acute osseous abnormality. XR/XR hand LT min 3V IMPRESSION: Degenerative changes as described with no acute osseous abnormality. Electronically signed by: Cisco Mcginnis MD 06/13/2024 10:16 AM EDT
== END 2024-06-07 10:04 | disposition home or self-care (01) ==
LOC: HO.HOSX 10:03
PROVIDERS: PCP Internal Medicine
DX: M18.9 Osteoarthritis of first carpometacarpal joint, unspecified (principal); M19.032 Primary osteoarthritis, left wrist
CPT/HCPCS: 20600; 73130; J1010

== ENCOUNTER 2024-06-07 11:01 | Outpatient (AMB) | payer OTHER, SELFPAY ==
[2023-05-14 12:51] VITALS: BP 124/68; BP 138/72; BMI 28.0
--- NOTE | 2024-06-07 11:06 | A.OFFVIS_ITS ---
Vital Signs 06/07/24 11:07 06/07/24 11:07 Height 5 ft 4 in Weight 166 lb BMI 28.5 Handedness Right Intake Visit Reasons: [employer]ING [employer] PUSHER- Left Thumb Pain Intake Note: Dave is a 63 year old male who presents today as a new patient with complaints of left thumb pain. Patient reports he thinks he sprained his thumb roughly 6 months ago. He has aching pain with palpitation at the base of his left thumb that radiates into his arm. He has not tried to take any pain relief medications due to him being able to tolerate the pain. Lately with cellphone use he has noticed his thumb begin to involuntary remains up and feel tight. He also states occasional tingling at the base of his thumb. He had shooting pain in the left hand that was repaired after he had a heart bypass about a year and 3 months ago. Pt is pre-diabetic Allergies No Known Allergies Allergy (Verified 06/07/24 11:07) HPI HPI [employer] PUSHER- Left Thumb Pain: Details: Patient is a 63-year-old male who presents for evaluation of pain at the base of the left thumb, radiating into the left radial wrist, ongoing for approximately 6 months. Patient reports that he had an ?sprain? of the thumb, and that this pain has been occurring ever since. The patient reports that this pain is primarily concentrated at the basal joint of the left thumb. The patient reports that he has not pain medication, as he finds the pain intolerable without medication. However, the patient reports that his pain has gradually worsened since this time, and would like to explore further treatment options. Patient denies any numbness or tingling in the digits of the left hand. Of note, the patient did have a bypass surgery approximately 1 year and 3 months ago, and reports that he was concerned that this pain may have been caused by further heart issues. No other acute complaints or concerns at this time. [facility] Medical History Atherosclerotic cardiovascular disease Other and unspecified hyperlipidemia Essential hypertension Hypertension Surgical History History of extraction of renal calculus Family History Mother No problems noted. 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 Neuro: Patient reports normal sensation of the tips of all digits of the left hand at this time. Vascular: Cap refill brisk Pain: The patient does report tenderness to palpation about the basal joint of the left thumb No tenderness to palpation of the MCP joint of the left thumb No tenderness to palpation over the 1st dorsal compartment or radial styloid of the left wrist Negative Olena Positive CMC grind on the left ROM: Patient is able to make a closed fist and extend fingers fully Skin: No lacerations or abrasions. General: No ecchymosis, erythema, or evidence of infection. Psych: Appears grossly normal Affect normal Attitude cooperative Office Procedures Joint Injection/Aspiration Joint Injection/Aspiration Primary Site: left thumb Prep: site was prepped using aseptic technique, ethochloride spray was applied and injection warnings given Injected: 40 mg of, DepoMedrol, with 0.5 mL of and 1% plain lidocaine Procedure: The patient tolerated the procedure well, but had some pain with the injection and there was some relief with the local anesthesia Coding 49062 - Small Joint Procedure code (CPT) selection complete Results Reviewed Results Reviewed: X-rays obtained in the office today and independently reviewed by me, Fransisco Virgen PA-C, demonstrate chronic degenerative changes of the left CMC joint. No fracture or acute bony abnormality noted. Assessment & Plan Assessment & Plan (1) Osteoarthritis of first carpometacarpal joint of left hand: Code(s): M18.12 - Unilateral primary osteoarthritis of first carpometacarpal joint, left hand Category: Medical Plan 1. Left basal joint arthritis Symptomatic for approximately the last 3 months I discussed conservative, nonoperative, and potential operative treatment of this condition with the patient, the patient would like to proceed with injection at this time Injection 1. The risks and benefits of a steroid injection including but not limited to risk of damage to blood vessels, nerve, tendon, infection, skin bleaching, persistent or worsening pain, and failure to improve symptoms were discussed with the patient and they wish to proceed with the steroid injection. Once consent was obtained the skin over the dorsum of the left basal joint was sterilely prepped. The joint was then injected with a combination of 1 mL of (40 mg/ml} Depo-Medrol and 0.5 mL 1% plain Lidocaine. The patient appears to have tolerated the procedure well and with no complications. He had good early relief before leaving clinic today. He knows that they may not have another steroid injection into this joint for least 4 months. Patient will follow-up p.r.n. with any acute concerns Orders: Orders XR hand LT min 3V 06/07/24 M79.642 - Pain in left hand Coding Level of Care Code New Pt Level 3 (64207) Diagnoses Osteoarthritis of first carpometacarpal joint of left hand M18.12 CPT Codes Coding - - Small joint: - Small Joint ([id number])
[2024-06-07 11:07] VITALS: BMI 28.5
== END 2024-06-07 12:02 | disposition home or self-care (01) ==
PROVIDERS: PCP Internal Medicine
DX: M19.042 Primary osteoarthritis, left hand (principal)
CPT/HCPCS: 20600; 99203

== ENCOUNTER 2024-10-02 08:25 | Outpatient (AMB) | payer OTHER, SELFPAY ==
[2023-05-14 12:51] VITALS: BP 124/68; BP 138/72; BMI 28.0
--- NOTE | 2024-10-02 08:28 | MHC.OFFVIS ---
Vital Signs 10/02/24 08:29 Height 5 ft 4 in Weight 169 lb 5.04 oz BMI 29.1 BP 146/80 H Blood Pressure Location Lt brachial Position Sitting Pulse 70 Intake Visit Reasons: 6 mth f/up echo Industrial Sewer Required: No Accompanied by: Self / Same As Patient Allergies No Known Allergies Allergy (Verified 06/07/24 11:07) Medication List - Last Reconciled 10/02/24 by Martin Lombardo MD aspirin (Adult Low Dose Aspirin) 81 mg PO DAILY metformin ER 500 mg PO ONCE metoprolol tartrate 50 mg PO BID mv,Ca,tot-uafb-SW-lycopene 8 mg iron- 200 mcg-600 mcg (Centrum Men) 1 tab PO DAILY rosuvastatin 40 mg PO DAILY HPI Comments Details: Dave returns for follow-up regarding coronary artery disease and coronary artery bypass surgery. Multiple cardiovascular risk factors including hypertension, dyslipidemia. Overall, he states he is feeling fine. He does have some sternotomy pain but otherwise no exertional angina or in fact anything else cardiac. Seems to be getting along fine. Blood pressure is slightly on the higher side. [facility] Medical History Atherosclerotic cardiovascular disease Other and unspecified hyperlipidemia Essential hypertension Hypertension Surgical History History of extraction of renal calculus Family History Mother No problems noted. 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 / [employer] Cognitive needs: No Hearing needs: No Vision needs: No Review of Systems Const Denies chills, Denies fatigue, Denies fever(s), Denies weight gain and Denies weight loss ENT Denies dizziness Card Denies chest pain, Denies leg edema, Denies lightheadedness, Denies palpitations, Denies dyspnea on exertion, Denies orthopnea and Denies other Resp Denies cough and Denies dyspnea on exertion GI Denies hematochezia and Denies change in stool character Musc Denies abnormal gait, Denies muscle weakness, Denies numbness, Denies radiating pain into limb and Denies tingling Neuro Denies abnormal gait, Denies dizziness, Denies numbness and Denies tingling Endo Denies fatigue and Denies palpitations Physical Exam Vital Signs: Last Vital Signs Pulse 70 10/02/24 08:29 BP 146/80 H 10/02/24 08:29 BMI result Body Mass Index 29.1 Const General: comfortable and no acute distress Orientation/consciousness: patient oriented x3 HEENT Other: Unremarkable Head: Yes normal to inspection Neck Neck: Yes normal visual inspection Chest Chest palpation & inspection: normal inspection of the chest Resp Auscultation: clear to auscultation bilaterally Cardio Palpation: normal PMI Heart sounds: S1 normal heart sound present, S2 normal heart sound present, no gallops, no murmurs and no rubs GI Palpation (GI): Soft to palpation Back/Spine/Pelvis Other: unremarkable Skin General skin exam: no rashes or lesions noted Neuro General: patient oriented x3 Extrem General: Yes normal to inspection Psych Mental Status: mental status grossly normal Assessment & Plan Assessment & Plan (1) Atherosclerotic cardiovascular disease: Code(s): I25.10 - Atherosclerotic heart disease of [place] coronary artery without angina pectoris Category: Medical (2) Status post coronary artery bypass graft: Code(s): Z95.1 - Presence of aortocoronary bypass graft Category: Surgical (3) Essential hypertension: Code(s): I10 - Essential (primary) hypertension Category: Medical (4) Other and unspecified hyperlipidemia: Code(s): E78.5 - Hyperlipidemia, unspecified Category: Medical Plan In the cardiac catheterization, he had multivessel disease including LAD and RCA. Status post CABG x3 02/2023. Overall, doing well. Continue aspirin indefinitely. Continue beta-blockers and statins. Lipids are well controlled. Blood pressure is slightly on the higher side. We can start him on a small dose of amlodipine 2.5 mg daily. Discussed with patient about that. Otherwise, he seems stable. Follow-up in 6 months. In the interim, call with concerns. Medications: New amlodipine 2.5 mg PO DAILY 90 tabs 3RF Coding Level of Care Code Est Pt Level 4 (77123) Diagnoses Atherosclerotic cardiovascular disease I25.10 Status post coronary artery bypass graft Z95.1 Essential hypertension I10 Other and unspecified hyperlipidemia E78.5
[2024-10-02 08:29] VITALS: BP 146/80; PULSE 70; BMI 29.1
== END 2024-10-02 08:47 | disposition home or self-care (01) ==
PROVIDERS: PCP Internal Medicine; Visit Provider Internal Medicine
DX: I25.10 Atherosclerotic heart disease of native coronary artery without angina pectoris (principal); Z95.1 Presence of aortocoronary bypass graft; I10 Essential (primary) hypertension; E78.5 Hyperlipidemia, unspecified
CPT/HCPCS: 99214

== ENCOUNTER → 2024-10-02 08:25 | Outpatient (BNVA) | payer OTHER, SELFPAY ==
[2023-05-14 12:51] VITALS: BP 124/68; BP 138/72; BMI 28.0
== END ==
PROVIDERS: PCP Internal Medicine; Visit Provider Internal Medicine

== ENCOUNTER 2024-11-13 08:53 | Outpatient (REF) | payer OTHER, SELFPAY ==
[2023-05-14 12:51] VITALS: BP 124/68; BP 138/72; BMI 28.0
[2024-11-13 09:04] LABS: MANUAL DIFF FLAG NO
[2024-11-13 09:41] LABS: Basophils Absolute Auto 0.1 X10*3/uL (0.0-0.2); Basophils Percent Auto 0.9 % (0-2); Eosinophils Absolute Auto 0.2 X10*3/uL (0.0-0.4); Eosinophils Percent Auto 2.8 % (0-4); Hematocrit 41.1 % (42.0-52.0); Hemoglobin 14.3 g/dl (14.0-18.0); Imm Gran Abs Auto 0.02 X10*3/uL (0.00-0.03); Imm Gran Pct Auto 0.3 % (0.0-0.4); Lymphocytes Absolute Auto 2.4 X10*3/uL (1.2-4.9); Lymphocytes Percent Auto 41.1 % (20-40); Mean Corpuscular HGB Conc 34.8 g/dl (31.0-36.0); Mean Corpuscular Hemoglobin 29.7 pg (27.0-33.0); Mean Corpuscular Volume 85.3 fL (80.0-98.0); Mean Platelet Volume 9.3 fL (9.4-12.4); Monocytes Absolute Auto 0.4 X10*3/uL (0.1-1.2); Monocytes Percent Auto 6.4 % (2-11); Neutrophils Absolute Auto 2.8 x10*3/uL (2.0-8.3); Neutrophils Percent Auto 48.5 % (45-73); Platelet Count 236 X10*3/uL (160-400); Red Blood Count 4.82 X10*6/uL (4.60-5.80); Red Cell Distribution Width 13.1 % (11.0-16.0); White Blood Count 5.7 X10*3/uL (4.8-10.8)
[2024-11-13 09:48] LABS: Estimated Average Glucose 237 mg/dL; Hemoglobin A1C 321.0284 umol/L; Hemoglobin A1c % 9.9 % (<6.0); Total Hemoglobin (HGBA1C) 3811.7672 umol/L
[2024-11-13 10:45] LABS: Creatinine Urine 150.21 mg/dL; Microalbum/Creatinine Ratio Ur 5.3 ug/mg cr (<30)
[2024-11-13 11:08] LABS: Anion Gap 11 (12-20); Bilirubin Total 0.4 mg/dL (0.0-1.0); Blood Urea Nitrogen 14 mg/dL (9-16); Calcium 8.6 mg/dL (8.4-10.2); Carbon Dioxide 23 mmol/L (22-29); Chloride 109 mmol/L (96-108); Estimated Glomerular Filt Rate > 60; Glucose Fasting 155 mg/dL (60-99); Potassium 3.8 mmol/L (3.3-5.1); Sodium 139 mmol/L (135-145)
[2024-11-13 11:09] LABS: Alanine Aminotransferase 36 U/L (0-40); Alkaline Phosphatase 51 U/L (39-117); Aspartate Amino Transferase 25 U/L (5-37); Cholesterol 127 mg/dL (<200); HDL Cholesterol 32 mg/dL (>40); LDL Cholesterol Calculated 60 mg/dL (<100); Total Protein 7.2 g/dL (6.5-8.0); Triglycerides 177 mg/dL (<150)
== END 2024-11-13 08:54 | disposition home or self-care (01) ==
LOC: HO.LAB 08:53
PROVIDERS: PCP Internal Medicine; Visit Provider Internal Medicine
DX: Z00.00 Encounter for general adult medical examination without abnormal findings (principal); N28.9 Disorder of kidney and ureter, unspecified; E78.5 Hyperlipidemia, unspecified; E11.69 Type 2 diabetes mellitus with other specified complication; E66.01 Morbid (severe) obesity due to excess calories; D64.9 Anemia, unspecified; Z12.5 Encounter for screening for malignant neoplasm of prostate
CPT/HCPCS: 36415; 80053; 80061; 82043; 82570; 83036; 84153; 85025

== ENCOUNTER → 2024-11-16 09:41 | Outpatient (BNVA) | payer OTHER, SELFPAY ==
[2023-05-14 12:51] VITALS: BP 124/68; BP 138/72; BMI 28.0
== END ==
PROVIDERS: PCP Internal Medicine; Visit Provider Internal Medicine

== ENCOUNTER 2024-11-21 11:19 | Outpatient (AMB) | payer OTHER, SELFPAY ==
[2023-05-14 12:51] VITALS: BP 124/68; BP 138/72; BMI 28.0
[2024-11-21 11:22] VITALS: BMI 28.7
--- NOTE | 2024-11-21 11:22 | A.OFFVIS_ITS ---
Vital Signs 11/21/24 11:22 Height 5 ft 4 in Weight 167 lb BMI 28.7 Intake Visit Reasons: ov- LT thumb pain s/p injection on 06/07/24 Intake Note: Jose is a 63 year old right hand dominant male who presents today for a follow up of his Left CMC joint OA. He last received an injection in the left basal joint on 06/07/24. Patient reports that this injection was not helpful. He feels that the injection was administered in the wrong spot as he has a significant increased in swelling s/p injection. he has had a significant increased pain at the base of the thumb and radiates up the forearm. Allergies No Known Allergies Allergy (Verified 11/16/24 09:45) HPI HPI ov- LT thumb pain s/p injection on 06/07/24: Details: Jose is a 63 year old right hand dominant male who presents today for a follow up of his Left CMC joint OA. He last received an injection in the left basal joint on 06/07/24. Patient reports that this injection was not helpful. He feels that the injection was administered in the wrong spot as he has a significant increased in swelling s/p injection. he has had a significant increased pain at the base of the thumb and radiates up the forearm. [facility] Medical History Atherosclerotic cardiovascular disease Other and unspecified hyperlipidemia Essential hypertension Hypertension Surgical History History of extraction of renal calculus Family History Mother No problems noted. 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 Neuro: Patient reports normal sensation of the tips of all digits of the left hand at this time. Vascular: Cap refill brisk Pain: The patient does report tenderness to palpation about the basal joint of the left thumb No tenderness to palpation of the MCP joint of the left thumb No tenderness to palpation over the 1st dorsal compartment or radial styloid of the left wrist Negative Olena Positive CMC grind on the left Pain with resisted flexion in the radial and volar L wrist ROM: Patient is able to make a closed fist and extend fingers fully Skin: No lacerations or abrasions. General: No ecchymosis, erythema, or evidence of infection. Psych: Appears grossly normal Affect normal Attitude cooperative Assessment & Plan Assessment & Plan (1) Osteoarthritis of first carpometacarpal joint of left hand: Code(s): M18.12 - Unilateral primary osteoarthritis of first carpometacarpal joint, left hand Category: Medical (2) FCR (flexor carpi radialis) tenosynovitis: Code(s): M65.939 - Unspecified synovitis and tenosynovitis, unspecified forearm Category: Medical Plan 1. Basal joint arthritis of L thumb 2. FCR tendinitis of L wrist Patient is educated about these conditions Patient is educated about the treatment options available At this time, patient states that he is not interested in OT referral or repeat injection Patient is offered a velcro wrist splint, but also declines Patient states he will work on ROM of the L hand and wrist on his own Patient will follow up as needed with any acute concerns Coding Level of Care Code Est Pt Level 3 (98233) Diagnoses Osteoarthritis of first carpometacarpal joint of left hand M18.12 FCR (flexor carpi radialis) tenosynovitis M65.939
== END 2024-11-21 11:52 | disposition home or self-care (01) ==
PROVIDERS: PCP Internal Medicine
DX: M18.12 Unilateral primary osteoarthritis of first carpometacarpal joint, left hand (principal); M65.939 Unspecified synovitis and tenosynovitis, unspecified forearm
CPT/HCPCS: 99213

== ENCOUNTER → 2024-11-21 11:19 | Outpatient (BNVA) | payer OTHER, SELFPAY ==
[2023-05-14 12:51] VITALS: BP 124/68; BP 138/72; BMI 28.0
== END ==
PROVIDERS: PCP Internal Medicine

== ENCOUNTER 2024-12-26 11:21 | Outpatient (AMB) | payer OTHER, SELFPAY ==
[2023-05-14 12:51] VITALS: BP 124/68; BP 138/72; BMI 28.0
[2024-12-26 11:23] VITALS: BP 132/84; PULSE 62; O2SAT 98; BMI 28.6
--- NOTE | 2024-12-26 11:23 | A.OFFPC_ITS ---
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 Required: No Accompanied by: Self / Same As Patient Allergies No Known Allergies Allergy (Verified 12/26/24 11:23) Medication List - Last Reconciled 12/27/24 by Nikolai Harman MD amlodipine 2.5 mg PO DAILY aspirin (Adult Low Dose Aspirin) 81 mg PO DAILY metformin ER 500 mg PO BID metoprolol tartrate 50 mg PO BID mv,Ca,tml-cect-ZV-lycopene 8 mg iron- 200 mcg-600 mcg (Centrum Men) 1 tab PO DAILY rosuvastatin 40 mg PO DAILY Tobacco use date assessed: 12/26/24 Dental Screening Dental Screen Date: 12/26/24 Did you have a dental visit in the last 12 months?: Yes Did you have a dental problem in the last 6 months where you did not have access to dental care?: No Was dental information given to patient?: Patient has dentist HPI PE HPI Details HTN DM and hyperlipidemia; compliant; doing well [facility] Medical History Atherosclerotic cardiovascular disease Other and unspecified hyperlipidemia Essential hypertension Hypertension Surgical History History of extraction of renal calculus Family History Mother No problems noted. 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 1. Little interest or pleasure in doing things: not at all 2. Feeling down, depressed, or hopeless: not at all 3. Trouble falling or staying asleep, or sleeping too much: not at all 4. Feeling tired or having little energy: not at all 5. Poor appetite or overeating: not at all 6. Feeling bad about yourself - or that you are a failure or have let yourself or your family down: not at all 7. Trouble concentrating on things, such as reading the newspaper or watching television: not at all 8. Moving or speaking so slowly that other people could have noticed. Or the opposite - being so fidgety or restless that you have been moving around a lot more than usual: not at all 9. Thoughts that you would be better off or of hurting yourself in some way: not at all Total score: 0 Source: Developed by Drs. Ti Douglas, Birdie Del Rosario, Maxx Siu and colleagues, with an educational edmond from [employer]. Thrive Questionnaire Date Thrive assessed: 12/26/24 I am a: Patient What is your living situation today?: I have a steady place to live Within the past 12 months, did the food you bought not last and you didn't have the money to get more?: Never true Within the past 12 months, did you worry whether your food would run out before you got money to buy more?: Never true Do you have trouble paying for medicines?: No Do you have trouble getting transportation to medical appointments?: No Do you have trouble paying your heating and electricity bill?: No Do you have trouble taking care of your child, family member or friend?: No Do you have trouble with day-to-day activities such as bathing, preparing meals, shopping, managing finances, etc.?: No Are you currently unemployed and looking for a job?: No Are you interested in more education?: No Please select the resources that you would like help with: None Currently or been in a relationship where the following occur: No concerns reported THRIVE Score: 0 AUDIT C Alcohol Use Questionnaire (AUDIT-C) 1. How often do you have a drink containing alcohol?: Monthly or less 2. How many drinks containing alcohol do you have on a typical day when you are drinking?: 1 or 2 3. How often do you have six or more drinks on one occasion?: Never Total Score: 1 ARISTIDES-7 AMB Questionnaire ARISTIDES-7 Date ARISTIDES - 7 assessed: 12/26/24 Feeling nervous, anxious, or on edge: 0 = Not at all Not being able to stop or control worryin = Not at all Worrying too much about different things: 0 = Not at all Trouble relaxin = Not at all Being so restless that it is hard to sit still: 0 = Not at all Becoming easily annoyed or irritable: 0 = Not at all Feeling afraid as if something awful might happen: 0 = Not at all Total ARISTIDES-7 score (0-4 normal; 5-9 mild; 10-14 moderate; 15-21 severe): 0 Source: Developed by Drs. Ti Douglas, Birdie Del Rosario, Maxx Siu and colleagues, with an educational edmond from [employer]. Review of Systems Const Denies chills, Denies fatigue, Denies headache(s) and Denies weight loss Eyes Denies change in vision, Denies diplopia and Denies eye pain ENT Denies vertigo, Denies dizziness, Denies headache(s) and Denies nasal discharge Card Denies chest pain, Denies rapid heart rate and Denies dyspnea on exertion Resp Denies chest congestion, Denies cough, Denies pain with cough and Denies dyspnea on exertion GI Denies abdominal pain, Denies hematochezia and Denies change in bowel habits Musc Denies myalgias, Denies arthralgias and Denies joint swelling Skin/Breast Denies lesions and Denies unusual bruising Neuro Denies vertigo, Denies dizziness, Denies headache(s) and Denies focal weakness Endo Denies fatigue Physical exam (Primary Care) Vital Signs: Last Vital Signs Pulse 62 12/26/24 11:23 BP 132/84 12/26/24 11:23 Pulse Ox 98 12/26/24 11:23 Oxygen Delivery Method Room Air 12/26/24 11:23 BMI result Body Mass Index 28.6 Tobacco/Smoking Status: Tobacco use Status Tobacco use date assessed 12/26/24 12/26/24 11:29 Patient Tobacco Use Status Never used Tobacco 12/26/24 11:29 e-Cigarette/Vaping Use Never Used 12/26/24 11:29 PHQ-9: PHQ-9 Score PHQ-9: Total score 0 12/26/24 11:29 Thrive Assessment: Date of Thrive Assessment Date Thrive assessed 12/26/24 12/26/24 11:29 Currently or been in a relationship where the following occur: No concerns reported Const General: cooperative, healthy appearing and no acute distress Orientation/consciousness: oriented to person, oriented to place and oriented to time HENMT Head: Yes normal to inspection, Yes normocephalic and Yes atraumatic Mouth: Normal oral and palatal mucosa present and tongue normal Throat: Yes posterior oropharynx normal and Yes uvula midline Eyes General: appearance normal, both eyes and all related structures Neck Neck: Yes normal visual inspection, Yes full ROM and Yes no lymphadenopathy Thyroid: Thyroid normal Carotids: normal carotid upstroke Chest Chest palpation & inspection: normal inspection of the chest Resp Effort & Inspection: normal respiratory effort and able to speak in complete se ntences Auscultation: clear to auscultation bilaterally Cardio Jugular venous distension: no JVD Palpation: normal PMI Rate: regular rate Rhythm: regular rhythm Heart sounds: S1 normal heart sound present and S2 normal heart sound present GI Inspection: Yes normal to inspection Palpation (GI): Soft to palpation and No hepatosplenomegaly present Auscultation: normal bowel sounds General: Yes no CVA tenderness Back/Spine/Pelvis Back: no CVA tenderness Skin General skin exam: no rashes or lesions noted Neuro General: oriented to person, oriented to place and oriented to time Extrem General: Yes normal to inspection and Yes full ROM Coding Level of Care Code New Pt Prev Care 40-64y(02567) Diagnoses Physical exam Z00.00 Essential hypertension I10 Hyperlipidemia E78.5 Assessment & Plan Assessment & Plan (1) Physical exam: Comment: labs Code(s): Z00.00 - Encounter for general adult medical examination without abnormal findings Category: Medical Plan: stable; (2) Essential hypertension: Code(s): I10 - Essential (primary) hypertension Category: Medical Plan: stable; same rx (3) Hyperlipidemia: Code(s): E78.5 - Hyperlipidemia, unspecified Category: Medical Plan: stable; same rx
== END 2024-12-26 13:18 | disposition home or self-care (01) ==
LOC: HO.HMCH 11:22
PROVIDERS: PCP Internal Medicine; Visit Provider Internal Medicine
DX: Z00.00 Encounter for general adult medical examination without abnormal findings (principal); I10 Essential (primary) hypertension; E78.5 Hyperlipidemia, unspecified

== ENCOUNTER 2025-03-29 10:22 | Outpatient (AMB) | payer OTHER, SELFPAY ==
[2023-05-14 12:51] VITALS: BP 124/68; BP 138/72; BMI 28.0
--- NOTE | 2025-03-29 10:28 | A.OFFVIS_ITS ---
Vital Signs 03/29/25 10:29 Height 5 ft 4 in Weight 163 lb 2.273 oz BMI 28.0 BP 122/68 Blood Pressure Location Lt brachial Position Sitting Pulse 58 Pulse Source Monitor Intake Visit Reasons: 6 mth f/up Allergies No Known Allergies Allergy (Verified 12/26/24 11:23) Medication List - Last Reconciled 03/29/25 by Martin Lombardo MD amlodipine 2.5 mg PO DAILY aspirin (Adult Low Dose Aspirin) 81 mg PO DAILY metformin ER 500 mg PO BID metoprolol tartrate 50 mg PO BID mv,Ca,vvy-fvgs-RM-lycopene 8 mg iron- 200 mcg-600 mcg (Centrum Men) 1 tab PO DAILY rosuvastatin 40 mg PO DAILY HPI Comments Details: Dave returns for follow-up regarding coronary artery disease and coronary artery bypass surgery. Multiple cardiovascular risk factors including hypertension, dyslipidemia. Mild sternotomy related discomfort but otherwise no other symptoms. No angina. Getting along fine. [facility] Medical History Atherosclerotic cardiovascular disease Other and unspecified hyperlipidemia Essential hypertension Hypertension Surgical History History of extraction of renal calculus Family History Mother No problems noted. 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 Cognitive needs: No Hearing needs: No Vision needs: Yes (Glasses) Review of Systems Const Denies weakness ENT Denies dizziness Card Denies chest pain, Denies chest pain with activity, Denies syncope, Denies rapid heart rate, Denies pedal edema, Denies edema, Denies leg edema, Denies lightheadedness, Denies palpitations, Denies dyspnea, Denies dyspnea on exertion and Denies orthopnea Resp Denies cough, Denies dyspnea and Denies dyspnea on exertion GI Denies hematochezia and Denies change in stool character Musc Denies abnormal gait, Denies muscle cramps, Denies muscle weakness, Denies numbness, Denies radiating pain into limb and Denies tingling Neuro Denies abnormal gait, Denies dizziness, Denies syncope, Denies numbness, Denies tingling and Denies weakness Endo Denies palpitations Physical Exam Vital Signs: Last Vital Signs Pulse 58 03/29/25 10:29 BP 122/68 03/29/25 10:29 BMI result Body Mass Index 28.0 Const General: comfortable and no acute distress Orientation/consciousness: patient oriented x3 HEENT Other: Unremarkable Head: Yes normal to inspection Neck Neck: Yes normal visual inspection Chest Chest palpation & inspection: normal inspection of the chest Resp Auscultation: clear to auscultation bilaterally Cardio Palpation: normal PMI Heart sounds: S1 normal heart sound present, S2 normal heart sound present, no gallops, no murmurs and no rubs GI Palpation (GI): Soft to palpation Back/Spine/Pelvis Other: unremarkable Skin General skin exam: no rashes or lesions noted Neuro General: patient oriented x3 Extrem General: Yes normal to inspection Psych Mental Status: mental status grossly normal Office Procedures EKG Details: EKG with underlying sinus bradycardia at 58/Min; rightward axis; nonspecific ST- T changes; [place] [id number], Complete Assessment & Plan Assessment & Plan (1) Atherosclerotic cardiovascular disease: Code(s): I25.10 - Atherosclerotic heart disease of [place] coronary artery without angina pectoris Category: Medical (2) Status post coronary artery bypass graft: Code(s): Z95.1 - Presence of aortocoronary bypass graft Category: Surgical (3) Essential hypertension: Code(s): I10 - Essential (primary) hypertension Category: Medical (4) Other and unspecified hyperlipidemia: Code(s): E78.5 - Hyperlipidemia, unspecified Category: Medical Plan In the cardiac catheterization, he had multivessel disease including LAD and RCA. Status post CABG x3 from 2022. Overall, doing well. Continue aspirin. Continue beta-blockers and statins. LDL is well controlled but triglycerides slightly high-could be related to diabetes. Blood pressure is stable. Diabetes not well controlled as the hemoglobin A1c is 9.9%. That will need to be addressed. Currently only on Metformin. We will need to be addressed through his new PCP. Follow-up in one year. In the interim, call with concerns. Discussion Notes I discussed with the patient the importance of maintaining current hypertension management with amlodipine, as his blood pressure is well-controlled. We reviewed the elevated hemoglobin A1c of 9.9% and emphasized the need for dietary changes and adherence to metformin for diabetes management. The patient was advised to monitor blood glucose levels and follow up with primary care for further evaluation. For hyperlipidemia, I recommended continuing the current cholesterol medication. Patient was informed and verbally consented to the use of an ambient scribe for clinic note documentation during this visit. Patient Instructions: - Continue taking amlodipine as prescribed for blood pressure. - Make dietary changes to help manage blood sugar levels. - Continue taking metformin for diabetes management. - Monitor blood glucose levels regularly. - Follow up with primary care for further evaluation and blood work. Coding Level of Care Code Est Pt Level 4 (97402) Complex EM visit Add On G2211 Diagnoses Atherosclerotic cardiovascular disease I25.10 Status post coronary artery bypass graft Z95.1 Essential hypertension I10 Other and unspecified hyperlipidemia E78.5 CPT Codes EKG - CPT: 72572-[id number], Complete ([id number])
[2025-03-29 10:29] VITALS: BP 122/68; PULSE 58; BMI 28.0
== END 2025-03-29 10:44 | disposition home or self-care (01) ==
PROVIDERS: PCP Internal Medicine; Visit Provider Internal Medicine
DX: I25.10 Atherosclerotic heart disease of native coronary artery without angina pectoris (principal); Z95.1 Presence of aortocoronary bypass graft; I10 Essential (primary) hypertension; E78.5 Hyperlipidemia, unspecified
CPT/HCPCS: 93010; 99214; G2211

== ENCOUNTER → 2025-03-29 10:22 | Outpatient (BNVA) | payer OTHER, SELFPAY ==
[2023-05-14 12:51] VITALS: BP 124/68; BP 138/72; BMI 28.0
== END ==
PROVIDERS: PCP Internal Medicine; Visit Provider Internal Medicine
DX: I25.10 Atherosclerotic heart disease of native coronary artery without angina pectoris (principal); Z95.1 Presence of aortocoronary bypass graft; I10 Essential (primary) hypertension; E78.5 Hyperlipidemia, unspecified
CPT/HCPCS: 93005

== ENCOUNTER 2025-05-28 12:18 | Outpatient (AMB) | payer OTHER, SELFPAY ==
[2023-05-14 12:51] VITALS: BP 124/68; BP 138/72; BMI 28.0
[2025-05-28 12:32] VITALS: BP 126/80; PULSE 63; O2SAT 97; BMI 28.7
--- NOTE | 2025-05-28 12:32 | A.OFFPC_ITS ---
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 Accompanied by: Self / Same As Patient Allergies No Known Allergies Allergy (Verified 05/28/25 12:49) Medication List - Last Reconciled 05/28/25 by Yahir Soto MD amlodipine 2.5 mg PO DAILY aspirin (Adult Low Dose Aspirin) 81 mg PO DAILY metformin ER 500 mg PO BID metoprolol tartrate 50 mg PO BID mv,Ca,tgz-falr-NG-lycopene 8 mg iron- 200 mcg-600 mcg (Centrum Men) 1 tab PO DAILY rosuvastatin 40 mg PO DAILY Tobacco use date assessed: 05/28/25 Dental Screening Dental Screen Date: 05/28/25 Did you have a dental visit in the last 12 months?: Yes Did you have a dental problem in the last 6 months where you did not have access to dental care?: No Was dental information given to patient?: Patient has dentist HPI DEANNA Dr Harman HPI Details Patient comes in today for his follow up visit - is transferring over from Dr. Harman, who retired from the practice a few months ago Patient states that he feels okay except for increasing left shoulder pains again lately Recalls that he would receive a cortisone injection into his shoulder from his previous PCP (Dr. Castle) in the past whenever his shoulder starts acting up - thinks that he has received about 2 to 3 injections into his shoulder over the years and is wondering if it is time for him to get another cortisone injection He denies any recent injury or trauma to his shoulder and states that he had x- rays done but it was many years ago and he does not really recall if his x-rays showed anything back then He denies any headaches or dizziness Denies any chest pains, no increased SOB No nausea/vomiting, no abdominal pain No change in bowel habits noted He has no follow up labs done recently [facility] Medical History (Updated 05/28/25 @ 13:35 by Yahir Soto MD) Overweight (BMI 25.0-29.9) Diabetes mellitus Mixed hyperlipidemia Atherosclerotic cardiovascular disease Essential hypertension Surgical History (Updated 05/28/25 @ 13:12 by Yahir Soto MD) History of coronary artery bypass graft x 3 History of extraction of renal calculus Family History Mother No problems noted. 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 1. Little interest or pleasure in doing things: not at all 2. Feeling down, depressed, or hopeless: not at all 3. Trouble falling or staying asleep, or sleeping too much: not at all 4. Feeling tired or having little energy: not at all 5. Poor appetite or overeating: not at all 6. Feeling bad about yourself - or that you are a failure or have let yourself or your family down: not at all 7. Trouble concentrating on things, such as reading the newspaper or watching television: not at all 8. Moving or speaking so slowly that other people could have noticed. Or the opposite - being so fidgety or restless that you have been moving around a lot more than usual: not at all 9. Thoughts that you would be better off or of hurting yourself in some way: not at all Total score: 0 Depression Screening Interpretation: Negative Depression Screening Done: Yes 85144 - PHQ-9 Billing: Yes Source: Developed by Drs. Ti Douglas, Birdie Del Rosario, Maxx Siu and colleagues, with an educational edmond from [employer]. Thrive Questionnaire Date Thrive assessed: 05/28/25 I am a: Patient What is your living situation today?: I have a steady place to live Within the past 12 months, did the food you bought not last and you didn't have the money to get more?: Never true Within the past 12 months, did you worry whether your food would run out before you got money to buy more?: Never true Do you have trouble paying for medicines?: No Do you have trouble getting transportation to medical appointments?: No Do you have trouble paying your heating and electricity bill?: No Do you have trouble taking care of your child, family member or friend?: No Do you have trouble with day-to-day activities such as bathing, preparing meals, shopping, managing finances, etc.?: No Are you currently unemployed and looking for a job?: No Are you interested in more education?: No Please select the resources that you would like help with: None Currently or been in a relationship where the following occur: No concerns reported THRIVE Score: 0 AUDIT C Alcohol Use Questionnaire (AUDIT-C) 1. How often do you have a drink containing alcohol?: Monthly or less 2. How many drinks containing alcohol do you have on a typical day when you are drinking?: 1 or 2 3. How often do you have six or more drinks on one occasion?: Never Total Score: 1 Score Reviewed/Action Taken: Yes ARISTIDES-7 AMB Questionnaire ARISTIDES-7 Date ARISTIDES - 7 assessed: 05/28/25 Feeling nervous, anxious, or on edge: 0 = Not at all Not being able to stop or control worryin = Not at all Worrying too much about different things: 0 = Not at all Trouble relaxin = Not at all Being so restless that it is hard to sit still: 0 = Not at all Becoming easily annoyed or irritable: 0 = Not at all Feeling afraid as if something awful might happen: 0 = Not at all Total ARISTIDES-7 score (0-4 normal; 5-9 mild; 10-14 moderate; 15-21 severe): 0 Source: Developed by Drs. Ti Douglas, Birdie Del Rosario, Maxx Siu and colleagues, with an educational edmond from [employer]. Review of Systems Const Denies chills, Denies fatigue, Denies fever(s) and Denies headache(s) ENT Denies dysphagia, Denies dizziness, Denies otalgia, Denies headache(s), Denies neck pain, Denies odynophagia and Denies sore throat Card Denies chest pain, Denies palpitations and Denies dyspnea Resp Denies chest congestion, Denies cough and Denies dyspnea GI Denies abdominal pain, Denies constipation, Denies dysphagia, Denies heartburn, Denies diarrhea, Denies nausea, Denies odynophagia and Denies vomiting Denies difficulty urinating, Denies dysuria, Reports nocturia and Denies urinary frequency Musc Denies back pain, Reports arthralgias (increased pain in the left shoulder over the past couple of weeks) and Denies neck pain Skin/Breast Denies rash Neuro Denies dizziness and Denies headache(s) Endo Denies fatigue and Denies palpitations Physical exam (Primary Care) Vital Signs: Last Vital Signs Pulse 63 05/28/25 12:32 BP 126/80 05/28/25 12:32 Pulse Ox 97 05/28/25 12:32 Oxygen Delivery Method Room Air 05/28/25 12:32 BMI result Body Mass Index 28.7 Tobacco/Smoking Status: Tobacco use Status Tobacco use date assessed 05/28/25 05/28/25 12:40 Patient Tobacco Use Status Never used Tobacco 05/28/25 12:40 e-Cigarette/Vaping Use Never Used 05/28/25 12:40 PHQ-9: PHQ-9 Score PHQ-9: Total score 0 05/28/25 12:56 Depression Screening Interpretation: Negative Thrive Assessment: Date of Thrive Assessment Date Thrive assessed 05/28/25 05/28/25 12:40 Currently or been in a relationship where the following occur: No concerns reported Const General: no acute distress and alert HENMT Ears: TM's normal bilaterally and EAC's normal Throat: Yes posterior oropharynx normal and Yes tonsils normal (no TP congestion noted) Neck Neck: Yes supple and No lymphadenopathy Thyroid: Thyroid normal Resp Auscultation: clear to auscultation bilaterally, no rales and no wheezes Cardio Rate: regular rate Rhythm: regular rhythm Heart sounds: no murmurs GI Palpation (GI): Soft to palpation and nontender Auscultation: normal bowel sounds General: Yes no CVA tenderness Back/Spine/Pelvis Back: no CVA tenderness Thoracic/Lumbar Spine: No lumbar spinal tenderness Skin Rashes: no rashes Extrem General: Yes no clubbing, cyanosis or edema Left upper extremity: shoulder/upper arm Details: tenderness Location: of the A- C joint and normal ROM; no swelling Coding Level of Care Code Est Pt Level 4 (73000) Diagnoses Type 2 diabetes mellitus without complication, without long-term current use of insulin E11.9 Diabetes mellitus type: type 2 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 Diabetes mellitus complication status: without complication Essential hypertension I10 Atherosclerotic cardiovascular disease I25.10 Mixed hyperlipidemia E78.2 Left shoulder pain, unspecified chronicity M25.512 Chronicity: unspecified Overweight (BMI 25.0-29.9) E66.3 Additional Codes PHQ-9 - 05469 - PHQ-9 Billing: Yes ([id number]) Assessment & Plan Assessment & Plan (1) Diabetes mellitus: Code(s): E11.9 - Type 2 diabetes mellitus without complications Category: Medical Qualifiers: Diabetes mellitus type: type 2 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: without 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 Diabetes mellitus complication status: without complication Qualified Code(s): E11.9 - Type 2 diabetes mellitus without complications Plan: His in-office HgbA1c today is at 7.0% (was at 9.9% a few months ago in November 2024) - goal is at least <7.0% Reinforced diabetic diet Continue Metformin ER 500 mg BID (2) Essential hypertension: Code(s): I10 - Essential (primary) hypertension Category: Medical Plan: Reinforced low sodium diet - goal is systolic BP of 120 mm or less Continue Amlodipine 2.5 mg QD and Metoprolol 50 mg BID Patient is reminded to continue monitoring his blood pressure regularly (3) Atherosclerotic cardiovascular disease: Code(s): I25.10 - Atherosclerotic heart disease of [place]iat[place] coronary artery without angina pectoris Category: Medical Plan: S/P CABG x 3 a couple of years ago in 2022; he currently remains asymptomatic from a cardiac standpoint Continue Aspirin 81 mg QD and Metoprolol 50 mg BID Follow up with cardiology as scheduled (4) Mixed hyperlipidemia: Code(s): E78.2 - Mixed hyperlipidemia Category: Medical Plan: Patient has no follow up labs done recently but his cholesterol levels were all at goal when they were last checked in November 2024 Reinforced low cholesterol diet Continue Rosuvastatin 40 mg QD Will have patient recheck his labs and fasting lipids in 4 months for follow up (5) Left shoulder pain: Code(s): M25.512 - Pain in left shoulder Category: Medical Qualifiers: Chronicity: unspecified Qualified Code(s): M25.512 - Pain in left shoulder Plan: Patient likely has OA or bursitis/tendinitis of the left shoulder Will send him to get updated x-rays of his left shoulder for further evaluation Will also refer him to orthopedics for further management of his shoulder and for potential cortisone injection(s) when appropriate (6) Overweight (BMI 25.0-29.9): Code(s): E66.3 - Overweight Category: Medical Plan: Reinforced diet/exercise as tolerated/lose weight Plan Follow up in 4 months Orders: Orders XR shoulder LT min 2V Today M25.512 - Pain in left shoulder Comprehensive [place]. Panel Fast 4 Months E78.00 - Pure hypercholesterolemia, unspecified Lipid Panel 4 Months E78.00 - Pure hypercholesterolemia, unspecified UA CC w/rflx Micro + Cult 4 Months R30.0 - Dysuria Hemoglobin A1c 4 Months E11.9 - Type 2 diabetes mellitus without complications Vitamin D 25-OH Total 4 Months E55.9 - Vitamin D deficiency, unspecified Vitamin B12 and Folate 4 Months E53.8 - Deficiency of other specified B group vitamins Complete Blood Count Auto Diff 4 Months D64.9 - Anemia, unspecified TSH reflex Free T4 4 Months E78.00 - Pure hypercholesterolemia, unspecified Microalbumin, Random (w Creat) 4 Months E11.9 - Type 2 diabetes mellitus without complications Referrals Orthopedics Referral M25.512 - Pain in left shoulder
== END 2025-05-28 13:24 | disposition home or self-care (01) ==
LOC: HO.HMCH 12:19
PROVIDERS: PCP Internal Medicine; Visit Provider Internal Medicine
DX: E11.9 Type 2 diabetes mellitus without complications (principal); I10 Essential (primary) hypertension; I25.10 Atherosclerotic heart disease of native coronary artery without angina pectoris; E78.2 Mixed hyperlipidemia; M25.512 Pain in left shoulder; E66.3 Overweight

== ENCOUNTER → 2025-05-28 12:18 | Outpatient (BNVA) | payer OTHER, SELFPAY ==
[2023-05-14 12:51] VITALS: BP 124/68; BP 138/72; BMI 28.0
== END ==
PROVIDERS: PCP Internal Medicine; Visit Provider Internal Medicine
DX: E11.9 Type 2 diabetes mellitus without complications (principal); I10 Essential (primary) hypertension; I25.10 Atherosclerotic heart disease of native coronary artery without angina pectoris; E78.2 Mixed hyperlipidemia; M25.512 Pain in left shoulder; E66.3 Overweight; Z68.28 Body mass index [BMI] 28.0-28.9, adult
CPT/HCPCS: 83036; 96127

== ENCOUNTER 2025-07-02 09:21 | Outpatient (AMB) | payer OTHER, SELFPAY ==
[2023-05-14 12:51] VITALS: BP 124/68; BP 138/72; BMI 28.0
[2025-07-02 09:19] VITALS: BP 124/68; BP 138/72; BMI 28.0
[2025-07-02 09:27] VITALS: BP 122/78; PULSE 62; TEMP 36.6; O2SAT 96; BMI 28.5
--- NOTE | 2025-07-02 09:27 | MHC.OFFWIV ---
Intake Vital Signs 07/02/25 09:27 Height 5 ft 4 in Weight 166 lb BMI 28.5 BP 122/78 Blood Pressure Location Lt brachial Position Sitting Pulse 62 Pulse Source Pulse Oximeter Temp 97.9 F Temp Source Oral Pulse Oximetry (%) 96 Oxygen Delivery Method Room Air Intake Visit Reasons: ep swollen left eye and painful Intake Note: pt is here for c.o left eye, swollen and painful since this morning Patient Tobacco Use Status: Never used Tobacco Allergies No Known Allergies Allergy (Verified 05/28/25 12:49) Do you need a note to return to daycare/school/sports/work: Yes HPI HPI Comments History of Present Illness Details 64 y/o Male patient who presents to the walk in clinic with c/o Left lower eyelid swelling since yesterday morning. Reports pain with Eye movement and tenderness around the periorbital. Denies fevers or chills. Denies headaches, or dizziness. Denies Injury or trauma. Denies Vision changes or pain. Denies discharge or redness. [facility] Medical History (Updated 07/02/25 @ 10:02 by Roxanne Candelaria NP) Hordeolum externum (stye) Overweight (BMI 25.0-29.9) Diabetes mellitus Mixed hyperlipidemia Atherosclerotic cardiovascular disease Essential hypertension Surgical History (Updated 05/28/25 @ 13:12 by Yahir Soto MD) History of coronary artery bypass graft x 3 History of extraction of renal calculus Family History Mother No problems noted. 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 Cognitive needs: No Hearing needs: No Vision needs: Yes (Glasses) Review of Systems Const All systems reviewed & are unremarkable except as noted in HPI and below Physical Exam Vital Signs: Last Vital Signs Temp 97.9 F 07/02/25 09:27 Pulse 62 07/02/25 09:27 BP 122/78 07/02/25 09:27 Pulse Ox 96 07/02/25 09:27 Oxygen Delivery Method Room Air 07/02/25 09:27 BMI result Body Mass Index 28.5 Const General: comfortable and no acute distress Nutritional Appearance: well nourished Orientation/consciousness: patient oriented x3 HEENT Head: Yes normocephalic Eyes Conjunctivae: conjunctivae normal Pupils: Equal, round and reactive pupils present EOM: EOMs intact bilaterally Eyes/upper lids images:  1. Small Red swollen bump left lower eyelid. Neuro General: patient oriented x3, gait normal and moves all extremities Cranial nerves: Yes Equal, round and reactive pupils present Psych Speech and movement: Normal speech and movement present Assessment & Plan Assessment & Plan (1) Hordeolum externum (stye): Code(s): H00.019 - Hordeolum externum unspecified eye, unspecified eyelid Qualifiers: Eyelid: lower Laterality: left Qualified Code(s): H00.015 - Hordeolum externum left lower eyelid Plan: Apply Warm compress to the left Eye - every 20 mins on/off. Ordered Cipro Abx eye drops on Hold. Informed Patient to wait and watch symptoms, if no improvement then use Abx. Advised to f/u with Eye doctor. Medications: New ciprofloxacin HCl 0.3% Put 1-2 drops in the affected eye every 2hr up to 8 times per day for 2 days; then 4 times per day for 5 days. 5 mL 0RF H00.015 - Hordeolum externum left lower eyelid Coding Level of Care Code Est Pt Level 4 (75527) Diagnoses Hordeolum externum of left lower eyelid H00.015 Eyelid: lower Laterality: left Time Spent (min) 20
== END 2025-07-02 10:02 | disposition home or self-care (01) ==
PROVIDERS: PCP Internal Medicine; Visit Provider Nurse Practitioner Family
DX: H00.015 Hordeolum externum left lower eyelid (principal)

== ENCOUNTER 2025-07-05 09:22 | Outpatient (AMB) | payer OTHER, SELFPAY ==
[2023-05-14 12:51] VITALS: BP 124/68; BP 138/72; BMI 28.0
[2025-07-05 09:41] VITALS: BMI 28.5
--- NOTE | 2025-07-05 09:41 | MHC.OFFVIS ---
Vital Signs 07/05/25 09:41 Height 5 ft 4 in Weight 166 lb BMI 28.5 Intake Visit Reasons: new prob- ?Pain in left shoulder Intake Note: Mr. Vasquez is a 64 year old man who presents with complaints of intermittent discomfort along the lateral aspect of his left shoulder. The patient states that several weeks ago his pain was quite severe. He has been doing gentle stretching exercises which have given him fairly good relief. He reports minimal discomfort today. He did have a cortisone injection given into his left shoulder by another provider several years ago. He got fairly good relief from that injection. Allergies No Known Allergies Allergy (Verified 07/05/25 09:43) Medication List - Last Reviewed 07/05/25 by BLAINE Baron amlodipine 2.5 mg PO DAILY aspirin (Adult Low Dose Aspirin) 81 mg PO DAILY ciprofloxacin HCl 0.3% Put 1-2 drops in the affected eye every 2hr up to 8 times per day for 2 days; then 4 times per day for 5 days. metformin ER 500 mg PO BID metoprolol tartrate 50 mg PO BID mv,Ca,des-dvxj-WN-lycopene 8 mg iron- 200 mcg-600 mcg (Centrum Men) 1 tab PO DAILY rosuvastatin 40 mg PO DAILY [facility] Medical History (Updated 07/05/25 @ 09:57 by Dimas Pederson MD) Hordeolum externum (stye) Overweight (BMI 25.0-29.9) Diabetes mellitus Mixed hyperlipidemia Atherosclerotic cardiovascular disease Essential hypertension Surgical History History of coronary artery bypass graft x 3 History of extraction of renal calculus Family History Mother No problems noted. 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 Cognitive needs: No Hearing needs: No Vision needs: Yes (Glasses) Physical Exam Vital Signs: BMI result Body Mass Index 28.5 Const Other: Well-nourished well-developed very friendly male awake alert and oriented x3 in no acute distress Extrem Other: Left shoulder examination shows almost full range of motion when compared to his right shoulder, 4+ out of 5 strength with supraspinatus testing, positive impingement signs, tenderness over his acromioclavicular joint, no instability Results Reviewed Results Reviewed: X-rays of the patient's left shoulder show severe acromioclavicular joint narrowing, a type 2 acromion, no acute bony abnormalities Assessment & Plan Assessment & Plan (1) Impingement syndrome of left shoulder: Code(s): M75.42 - Impingement syndrome of left shoulder Category: Medical Plan Mr. Vail who presents with intermittent left shoulder discomfort due to impingement syndrome. I had a lengthy discussion with the patient regarding the treatment options. At this point the patient's symptoms are tolerable to him. He will continue with his home stretching program to prevent stiffness. He will follow up with me on an as-needed basis should his symptoms worsen in any way. Feel free to call me at any time should questions regarding his orthopedic management arise. I spent 20 minutes in reviewing the patient's records and imaging studies, seeing the patient and documenting in the medical record. Orders: Orders XR shoulder LT min 2V Today M25.512 - Pain in left shoulder Coding Level of Care Code Est Pt Level 3 (22410) Complex EM visit Add On G2211 Diagnoses Impingement syndrome of left shoulder M75.42
== END 2025-07-05 09:55 | disposition home or self-care (01) ==
LOC: HO.HOS 09:23
PROVIDERS: PCP Internal Medicine; Visit Provider Orthopaedic Surgery
DX: M75.42 Impingement syndrome of left shoulder (principal)
CPT/HCPCS: 99213; G2211

== ENCOUNTER → 2025-07-05 09:28 | Outpatient (BNV) | payer OTHER, SELFPAY ==
[2025-07-02 09:19] VITALS: BP 124/68; BP 138/72; BMI 28.0
== END ==
PROVIDERS: Visit Provider Family Medicine
DX: M19.012 Primary osteoarthritis, left shoulder (principal)
CPT/HCPCS: 73030

== ENCOUNTER 2025-07-05 11:47 | Outpatient (REF) | payer OTHER, SELFPAY ==
[2023-05-14 12:51] VITALS: BP 124/68; BP 138/72; BMI 28.0
--- NOTE | ~2025-07-05 | XR_ITS ---
CLINICAL HISTORY: M25.512 - Pain in left shoulder 2 view left shoulder Comparison: None provided Findings: Bones intact. No dislocations. Mild degenerative changes of the left acromioclavicular joint and glenohumeral joint. No erosions. No radiopaque foreign body. Median sternotomy and CABG. IMPRESSION: Mild degenerative changes of the left acromioclavicular joint and glenohumeral joint. This document has been electronically signed by: Christopher Black DO on 07/06/2025 12:33:32
== END 2025-07-05 11:48 | disposition home or self-care (01) ==
LOC: HO.HOSX 11:47
PROVIDERS: Visit Provider Orthopaedic Surgery
DX: M75.42 Impingement syndrome of left shoulder (principal)
CPT/HCPCS: 73030

== ENCOUNTER 2025-09-24 09:40 | Outpatient (REF) | payer OTHER, SELFPAY ==
[2025-09-24 10:02] LABS: MANUAL DIFF FLAG NO
[2025-09-24 10:23] LABS: Hematocrit 42.4 % (42.0-52.0); Hemoglobin 14.3 g/dl (14.0-18.0); Imm Gran Abs Auto 0.02 X10*3/uL (0.00-0.03); Imm Gran Pct Auto 0.3 % (0.0-0.4); Lymphocytes Absolute Auto 2.5 X10*3/uL (1.2-4.9); Mean Corpuscular HGB Conc 33.7 g/dl (31.0-36.0); Mean Corpuscular Hemoglobin 29.1 pg (27.0-33.0); Mean Corpuscular Volume 86.4 fL (80.0-98.0); NRBC Abs Auto 0.000 X10*3/uL (0.0-0.012); NRBC Pct Auto 0.0 /100WBC (0.0-0.2); Platelet Count 226 X10*3/uL (160-400); Red Blood Count 4.91 X10*6/uL (4.60-5.80); White Blood Count 6.3 X10*3/uL (4.8-10.8)
[2025-09-24 10:56] LABS: Alanine Aminotransferase 41 U/L (0-40); Albumin Level 4.3 g/dL (3.5-5.0); Alkaline Phosphatase 59 U/L (39-117); Anion Gap 10 (12-20); Aspartate Amino Transferase 42 U/L (5-37); Blood Urea Nitrogen 19 mg/dL (9-16); Calcium 8.8 mg/dL (8.4-10.2); Carbon Dioxide 26 mmol/L (22-29); Chloride 109 mmol/L (96-108); Cholesterol 106 mg/dL (<200); Estimated Glomerular Filt Rate > 60; HDL Cholesterol 33 mg/dL (>40); Potassium 4.3 mmol/L (3.3-5.1); Sodium 141 mmol/L (135-145); Total Protein 7.2 g/dL (6.5-8.0); Triglycerides 149 mg/dL (<150)
[2025-09-24 11:15] LABS: Appearance Urine Cloudy; Glucose Urine UA Negative (Negative); PH 6.0 (5.0-9.0); Specific Gravity - Urine 1.025 (1.005-1.025); UMIC TRIGGER UACC YES
[2025-09-24 11:18] LABS: Folate 6.3 ng/mL (> or = 4.0); Vitamin B12 483 pg/mL (200-900)
[2025-09-24 11:46] LABS: Microalbum/Creatinine Ratio Ur 6.7 ug/mg cr (<30)
[2025-09-24 12:32] LABS: Free T4 (Free Thyroxine) 1.01 ng/dL (0.71-1.85)
== END 2025-09-24 09:41 | disposition home or self-care (01) ==
LOC: HO.LAB 09:40
PROVIDERS: PCP Internal Medicine; Visit Provider Internal Medicine
DX: E11.9 Type 2 diabetes mellitus without complications (principal); E53.8 Deficiency of other specified B group vitamins; E78.00 Pure hypercholesterolemia, unspecified; E55.9 Vitamin D deficiency, unspecified; D64.9 Anemia, unspecified; R30.0 Dysuria
CPT/HCPCS: 36415; 80053; 80061; 81001; 81003; 82043; 82306; 82570; 82607; 82746; 83036; 84439; 84443; 85025

== ENCOUNTER 2025-09-27 10:37 | Outpatient (AMB) | payer OTHER, SELFPAY ==
[2023-05-14 12:51] VITALS: BP 124/68; BP 138/72; BMI 28.0
--- NOTE | 2025-09-27 11:16 | MHC.PC.OV ---
Vital Signs 09/27/25 11:18 Height 5 ft 4 in Weight 165 lb BMI 28.3 BP 126/64 Blood Pressure Location Lt brachial Position Sitting Respiration 18 Pulse 61 Pulse Source Pulse Oximeter Temp 97.8 F Temp Source Temporal Artery Scan Pulse Oximetry (%) 98 Oxygen Delivery Method Room Air Intake Visit Reasons: CAD, DM, hyperlipidemia, HTN Gas Prover Required: No Accompanied by: Self / Same As Patient Allergies No Known Allergies Allergy (Verified 09/27/25 11:42) Medication List - Last Reconciled 09/27/25 by Yahir Soto MD amlodipine 2.5 mg PO DAILY aspirin (Adult Low Dose Aspirin) 81 mg PO DAILY coQ10 (ubiquinol) (Qunol Evangelista CoQ10) 200 mg PO DAILY metformin ER 500 mg PO BID metoprolol tartrate 50 mg PO BID mv,Ca,ukx-aura-HV-lycopene 8 mg iron- 200 mcg-600 mcg (Centrum Men) 1 tab PO DAILY rosuvastatin 40 mg PO DAILY Tobacco use date assessed: 05/28/25 Dental Screening Dental Screen Date: 05/28/25 HPI CAD, DM, hyperlipidemia, HTN HPI Details Patient comes in today for his follow up visit Patient states that he feels okay and that his previous left shoulder symptoms have improved significantly with the shoulder stretches that he has been doing as instructed by orthopedics He denies any headaches or dizziness Denies any chest pains, no increased SOB No nausea/vomiting, no abdominal pain No change in bowel habits noted He had his follow up labs done a few days ago - to discuss his results [facility] Medical History (Updated 09/28/25 @ 05:21 by Yahir Soto MD) Vitamin D deficiency Hordeolum externum (stye) Overweight (BMI 25.0-29.9) Diabetes mellitus Mixed hyperlipidemia Atherosclerotic cardiovascular disease Essential hypertension Surgical History History of coronary artery bypass graft x 3 History of extraction of renal calculus Family History Mother No problems noted. Father High blood pressure Social History Housing: Apartment Alcohol intake: current Alcohol intake frequency: holidays/special occasions only Patient Tobacco Use Status: Never used Tobacco e-Cigarette/Vaping Use: Never Used Second Hand Smoke Exposure: No service: No Current occupational status: employed Current occupation: [employer] / [employer] Cognitive needs: No Hearing needs: No Vision needs: Yes (Glasses) Questionnaire PHQ-9 Over the last 2 weeks, how often have you been bothered by any of the following problems? Depression Screening Interpretation: Negative Depression Screening Done: Yes Source: Developed by Drs. Ti Douglas, Birdie Del Rosario, Maxx Siu and colleagues, with an educational edmond from [employer]. Thrive Questionnaire Date Thrive assessed: 12/20/24 I am a: Patient What is your living situation today?: I have a steady place to live Within the past 12 months, did the food you bought not last and you didn't have the money to get more?: Never true Within the past 12 months, did you worry whether your food would run out before you got money to buy more?: Never true Do you have trouble paying for medicines?: No Do you have trouble getting transportation to medical appointments?: No Do you have trouble paying your heating and electricity bill?: No Do you have trouble taking care of your child, family member or friend?: No Do you have trouble with day-to-day activities such as bathing, preparing meals, shopping, managing finances, etc.?: No Are you currently unemployed and looking for a job?: No Are you interested in more education?: No Please select the resources that you would like help with: None Currently or been in a relationship where the following occur: No concerns reported THRIVE Score: 0 ARISTIDES-7 AMB Questionnaire ARISTIDES-7 Date ARISTIDES - 7 assessed: 05/28/25 Source: Developed by Drs. Ti Douglas, Birdie Del Rosario, Maxx Siu and colleagues, with an educational edmond from [employer]. Review of Systems Const Denies chills, Denies fatigue, Denies fever(s) and Denies headache(s) ENT Denies dysphagia, Denies dizziness, Denies otalgia, Denies headache(s), Denies neck pain, Denies odynophagia and Denies sore throat Card Denies chest pain, Denies palpitations and Denies dyspnea Resp Denies chest congestion, Denies cough and Denies dyspnea GI Denies abdominal pain, Denies constipation, Denies dysphagia, Denies heartburn, Denies diarrhea, Denies nausea, Denies odynophagia and Denies vomiting Denies difficulty urinating, Denies dysuria, Reports nocturia and Denies urinary frequency Musc Denies back pain, Denies arthralgias and Denies neck pain Skin/Breast Denies rash Neuro Denies dizziness and Denies headache(s) Endo Denies fatigue and Denies palpitations Physical exam (Primary Care) Vital Signs: Last Vital Signs Temp 97.8 F 09/27/25 11:18 Pulse 61 09/27/25 11:18 Resp 18 09/27/25 11:18 BP 126/64 09/27/25 11:18 Pulse Ox 98 09/27/25 11:18 Oxygen Delivery Method Room Air 09/27/25 11:18 BMI result Body Mass Index 28.3 Tobacco/Smoking Status: Tobacco use Status Tobacco use date assessed 05/28/25 09/27/25 11:16 Patient Tobacco Use Status Never used Tobacco 09/27/25 11:16 e-Cigarette/Vaping Use Never Used 09/27/25 11:16 Depression Screening Interpretation: Negative Thrive Assessment: Date of Thrive Assessment Date Thrive assessed 12/20/24 09/27/25 11:16 Currently or been in a relationship where the following occur: No concerns reported Const General: no acute distress and alert HENMT Ears: TM's normal bilaterally and EAC's normal Throat: Yes posterior oropharynx normal and Yes tonsils normal (no TP congestion noted) Neck Neck: Yes supple and No lymphadenopathy Thyroid: Thyroid normal Resp Auscultation: clear to auscultation bilaterally, no rales and no wheezes Cardio Rate: regular rate Rhythm: regular rhythm Heart sounds: no murmurs GI Palpation (GI): Soft to palpation and nontender Auscultation: normal bowel sounds General: Yes no CVA tenderness Back/Spine/Pelvis Back: no CVA tenderness Thoracic/Lumbar Spine: No lumbar spinal tenderness Skin Rashes: no rashes Extrem General: Yes no clubbing, cyanosis or edema Results Reviewed Results Reviewed: Laboratory Tests 05/28/25 09/24/25 09/24/25 13:54 09:40 10:00 WBC 6.3 Hgb 14.3 Hct 42.4 Plt Count 226 Sodium 141 Potassium 4.3 Creatinine 1.04 Estimated GFR > 60 Fasting Glucose 132 H Hgb A1c (Clinic) 7.0 H Hemoglobin A1c % 7.2 H Calcium 8.8 AST 42 H ALT 41 H Triglycerides 149 Cholesterol 106 LDL Cholesterol, Calc 44 HDL Cholesterol 33 L Vitamin B12 483 25-OH Vitamin D Total 27.0 L TSH 5.55 H Free T4 1.01 Ur Specific [place] 1.025 Urine Protein Negative Urine Glucose (UA) Negative Urine Blood Negative Urine Nitrite Negative Ur Leukocyte Esterase Trace H Microalb/Creat Ratio 6.7 Coding Level of Care Code Est Pt Level 4 (89599) Diagnoses Type 2 diabetes mellitus without complication, without long-term current use of insulin E11.9 Diabetes mellitus complication status: without complication Diabetes mellitus continuous churn buttermaker insulin use: without half-way use Diabetes mellitus type: type 2 Essential hypertension I10 Atherosclerotic cardiovascular disease I25.10 Mixed hyperlipidemia E78.2 Left shoulder pain, unspecified chronicity M25.512 Chronicity: unspecified Vitamin D deficiency E55.9 Overweight (BMI 25.0-29.9) E66.3 Assessment & Plan Assessment & Plan (1) Diabetes mellitus: Code(s): E11.9 - Type 2 diabetes mellitus without complications Category: Medical Qualifiers: Diabetes mellitus complication status: without complication Diabetes mellitus continuous churn buttermaker insulin use: without continuous churn buttermaker use Diabetes mellitus type: type 2 Qualified Code(s): E11.9 - Type 2 diabetes mellitus without complications Plan: His HgbA1c was at 7.2% on his labs done a few days ago (his in-office HgbA1c was also at 7.2% a few months ago) - goal is at least <7.0% Reinforced diabetic diet Continue Metformin ER 500 mg BID (2) Essential hypertension: Code(s): I10 - Essential (primary) hypertension Category: Medical Plan: Reinforced low sodium diet - goal is systolic BP of 120 mm or less Continue Amlodipine 2.5 mg QD and Metoprolol 50 mg BID Patient is reminded to continue monitoring his blood pressure regularly (3) Atherosclerotic cardiovascular disease: Code(s): I25.10 - Atherosclerotic heart disease of [place] coronary artery without angina pectoris Category: Medical Plan: S/P CABG x 3 a couple of years ago in 2022; he currently remains asymptomatic from a cardiac standpoint Continue Aspirin 81 mg QD and Metoprolol 50 mg BID Follow up with cardiology as scheduled (4) Mixed hyperlipidemia: Code(s): E78.2 - Mixed hyperlipidemia Category: Medical Plan: Results of his labs done a few days ago reviewed and discusses with patient Reinforced low cholesterol diet Continue Rosuvastatin 40 mg QD Will recheck his labs and fasting lipids in 4 months for follow up (5) Left shoulder pain: Code(s): M25.512 - Pain in left shoulder Category: Medical Qualifiers: Chronicity: unspecified Qualified Code(s): M25.512 - Pain in left shoulder Plan: Updated x-rays of his left shoulder done back in June 2025 revealed (+) mild degenerative changes of the left acromioclavicular joint and glenohumeral joint He was referred to orthopedics, who diagnosed him instead with impingement syndrome and patient states that his symptoms improved with some stretching exercises that he was taught by orthopedics to do at home regularly to help prevent stiffness of the shoulder (6) Vitamin D deficiency: Code(s): E55.9 - Vitamin D deficiency, unspecified Category: Medical Plan: He is advised that his Vitamin D level was low on his recent labs Will start him on Vitamin D3 2000 units QD (7) Overweight (BMI 25.0-29.9): Code(s): E66.3 - Overweight Category: Medical Plan: Reinforced diet/exercise as tolerated/lose weight Plan Follow up in 4 months Orders: Orders Complete Blood Count Auto Diff 4 Months D64.9 - Anemia, unspecified Comprehensive [place]. Panel Fast 4 Months E78.00 - Pure hypercholesterolemia, unspecified Lipid Panel 4 Months E78.00 - Pure hypercholesterolemia, unspecified Hemoglobin A1c 4 Months E11.9 - Type 2 diabetes mellitus without complications Microalbumin, Random (w Creat) 4 Months E11.9 - Type 2 diabetes mellitus without complications Vitamin D 25-OH Total 4 Months E55.9 - Vitamin D deficiency, unspecified Medications: New cholecalciferol (vitamin D3) 50 mcg PO DAILY 90 caps 3RF 90 days E55.9 - Vitamin D deficiency, unspecified
[2025-09-27 11:18] VITALS: BP 126/64; PULSE 61; RESP 18; TEMP 36.6; O2SAT 98; BMI 28.3
== END 2025-09-27 11:54 | disposition home or self-care (01) ==
LOC: HO.HMCH 10:38
PROVIDERS: PCP Internal Medicine; Visit Provider Internal Medicine
DX: E11.9 Type 2 diabetes mellitus without complications (principal); I10 Essential (primary) hypertension; I25.10 Atherosclerotic heart disease of native coronary artery without angina pectoris; E78.2 Mixed hyperlipidemia; M25.512 Pain in left shoulder; E55.9 Vitamin D deficiency, unspecified; E66.3 Overweight